=== PATIENT | male | born 1940 | race Caucasian/White ===

== ENCOUNTER → 2024-02-07 08:00 | Outpatient (REF) | payer MEDICARE, OTHER, SELFPAY ==
[2024-02-07 09:07] LABS: ALT (SGPT) 26 U/L (0-50); AST (SGOT) 36 U/L (17-59); Albumin 4.8 g/dl (3.5-5.0); Alkaline Phosphatase 58 U/L (38-126); Blood Urea Nitrogen 13 mg/dl (9-20); Calcium 10.3 mg/dl (8.4-10.2); Carbon Dioxide 28 mmol/L (22-30); Chloride 103 mmol/L (98-107); Glucose 99 mg/dl (70-99); HDL Cholesterol 66 mg/dl; LDL Cholesterol, Calculated 63 mg/dl; Potassium 4.5 mmol/L (3.5-5.1); Sodium 142 mmol/L (135-145); Total Bilirubin 1.6 mg/dl (0.2-1.3); Total Cholesterol 151 mg/dl (50-199); Total Protein 7.4 g/dl (6.3-8.2); Triglyceride 113 mg/dl (10-149); Very Low Density Lipoprotein 22 mg/dl (0-30); eGFR > 60.00
[2024-02-07 09:33] LABS: PSA, Total - Diagnostic 5.47 ng/ml (0.0-4.0)
== END ==
LOC: REG 08:00
PROVIDERS: ATTENDING PHYSICIAN Family Medicine
DX: Z00.00 Encounter for general adult medical examination without abnormal findings (principal); I10 Essential (primary) hypertension; E78.2 Mixed hyperlipidemia; N40.0 Benign prostatic hyperplasia without lower urinary tract symptoms
CPT/HCPCS: 36415; 80053; 80061; 84153

== ENCOUNTER 2024-03-10 16:59 | Inpatient (IN) | payer MEDICARE, OTHER, SELFPAY ==
[2024-03-10] VITALS (14 sets, daily range): BP systolic 103–171; BP diastolic 59–122; PULSE 82–97
[2024-03-10 09:32] LABS: % Basophils 0.3 % (0-2); % Eosinophils 0.8 % (0-6); % Immature Granulocytes 0.5 % (0-0.5); % Neutrophils 73.4 % (42.2-75.2); Absolute Eosinophils 0.1 10^3/uL (0-0.7); Absolute Immature Granulocytes 0.1 10^3/uL (0-0.05); Absolute Lymphocytes 1.8 10^3/uL (1.2-3.4); Absolute Monocytes 0.7 10^3/uL (0.1-0.6); Absolute Neutrophils 7.5 10^3/uL (1.4-6.5); Hematocrit 47.6 % (39.0-52.0); Hemoglobin 16.4 g/dL (13.0-18.0); Mean Corp Hgb Conc. 34.5 g/dL (33.0-37.0); Mean Corpuscular Hgb 28.4 pg (27.0-31.0); Mean Corpuscular Volume 82.5 fL (80.0-94.0); Mean Platelet Volume 11.2 fL (7.4-10.4); Nucleated Red Blood Cells % 0 % (-); Platelet Count 179 10^3/uL (130-400); Red Blood Cell Count 5.77 10^6/uL (4.70-6.10); Red Cell Dist. Width 13.8 % (11.5-14.5); White Blood Cell Count 10.2 10^3/uL (4.8-10.8)
--- NOTE | 2024-03-10 09:52 | ED.GENMED ---
History of Present Illness
<Dustin Almendarez PA-C - Last Filed: 03/10/24 15:16>
General
Chief Complaint: Fainting/Passed Out
Source: patient
Exam Limitations: none
Time Seen by Provider: 03/10/24 09:21
Travel History
Have you had any contact with someone who has COVID-19?: No
Do you have any symptoms of coronavirus? Fever > 100 degrees, chills, cough, shortness of breath, sore throat, loss of taste or smell, muscle aches, or headache?: No
History of Present Illness
History of Present Illness:
83-year-old male on Eliquis for history of stroke x 3 presents with onset of diaphoresis and dizziness after walking his dog for about 10 to 15 minutes. He then developed nausea and was vomiting several times. He leaned over a chair to keep his
balance however the chair tipped over and he fell to the ground. He did not hit his head. The saw this happened. He denies headache. He took him quite some time with many people to have him sit up due to generalized weakness. He states at
the moment he feels improved. He denies a headache but still notes weakness and dizziness with nausea. There was never any chest pain. No vision change. No other complaints at this time
Past History
<Dustin Almendarez PA-C - Last Filed: 03/10/24 15:16>
Past History
ED Past Medical History: Cancer (Skin), CVA (June 2021 acute ischemic left temporoparietal stroke), HTN, Hypercholesterolemia and Other (dizziness, aphasia, orthostatic hypotension, Gout)
ED Past Surgical History: Cardiac (Link recorder implanted) and Tonsilectomy
Social History
Tobacco: Former smoker
Alcohol: None
Drug: None
Personal:
Living: with family
Employment: Retired
Family History
Family History: Other (reviewed and non-contributory)
Phy Exam
<Dustin Almendarez PA-C - Last Filed: 03/10/24 15:16>
Physical Exam
Physical Exam:
General: Overall well-appearing male no acute respiratory distress
HEENT: Normocephalic atraumatic
Heart: Regular rate and rhythm no murmurs
Lungs: Clear to auscultation bilaterally no wheezing
Abdomen: Soft nontender nondistended no guarding or rebound
Neurologic exam: Alert and oriented x 3 no nystagmus no drift finger-nose intact negative [place]-Hallpike
Extremities: No cyanosis or edema
Skin: Warm, no rashes
Course
<Dustin Almendarez PA-C - Last Filed: 03/10/24 15:16>
Orders/Labs/Results
Orders:
Orders
03/10/24 09:07
Electrocardiogram (*1) Urgent
Reason for Study: Chest Pain
Cardiac Monitoring- Treatment ONCE
EKG- Treatment ONCE
IV Insert/Care/Rem.- Treatment PRN
03/10/24 09:25
Complete Blood Count/With Diff Urgent
03/10/24 09:35
0.9% Sodium Chloride 1000 ml [Nss] 1,000 ml IV BOLUS
Ondansetron Injectable [Zofran] 4 mg IV NOW STA
03/10/24 10:00
Comprehensive Metabolic Panel Urgent
03/10/24 10:01
Troponin I Urgent
Urinalysis Reflex To Culture Urgent
Date Specimen was Collected: 03/10/24
Time Specimen was Collected: 09:53
Urine Microscopic Reflex Cult Urgent
03/10/24 12:12
Troponin I Urgent
03/10/24 13:57
Troponin I Urgent
03/10/24 15:04
Costa Placement- Treatment ONCE
Reason for insertion: Acute Retention
Abnormal Lab Results
06/03/10/24 03/10/24
09:25 10:00 10:01
MPV 11.2 H fL
(7.4-10.4)
Abs Immat Gran (auto) 0.1 H 10^3/uL
(0-0.05)
Absolute Neuts (auto) 7.5 H 10^3/uL
(1.4-6.5)
Absolute Monos (auto) 0.7 H 10^3/uL
(0.1-0.6)
Lymphocytes % 18.0 L %
(20.5-51.1)
Glucose 169 H mg/dl
(70-99)
Total Bilirubin 1.7 H mg/dl
(0.2-1.3)
Troponin I 0.036 H* ng/ml
Albumin 5.1 H g/dl
(3.5-5.0)
Urine Ketones 1+ A
(Negative)
Ur Occult Blood Reflex 1+ A
(Negative)
Leukocyte Esterase Rfl Trace A
(Negative)
Urine RBC 3-6 A /HPF
(0-2)
Urine Glucose Trace A
(Negative)
03/10/24 03/10/24
12:12 13:57
MPV
Abs Immat Gran (auto)
Absolute Neuts (auto)
Absolute Monos (auto)
Lymphocytes %
Glucose
Total Bilirubin
Troponin I 0.065 H* D ng/ml 0.118 H* D ng/ml
Albumin
Urine Ketones
Ur Occult Blood Reflex
Leukocyte Esterase Rfl
Urine RBC
Urine Glucose
03/10/24 09:25
03/10/24 10:00
Vital Signs
Initial and Last Documented VS:
Initial Vital Signs
Temp Pulse Resp BP Pulse Ox
97.5 F 77 18 121/71 93
03/10/24 09:05 03/10/24 09:05 03/10/24 09:05 03/10/24 09:05 03/10/24 09:05
Last Documented Vital Signs
Temp Pulse Resp BP Pulse Ox
98.4 F 82 18 147/86 93
03/10/24 15:20 03/10/24 15:45 03/10/24 15:45 03/10/24 15:22 03/10/24 15:45
<Ernesto Rajan DO - Last Filed: 03/10/24 16:08>
Orders/Labs/Results
Orders:
Orders
03/10/24 09:07
Electrocardiogram (*1) Urgent
Reason for Study: Chest Pain
Cardiac Monitoring- Treatment ONCE
EKG- Treatment ONCE
IV Insert/Care/Rem.- Treatment PRN
03/10/24 09:25
Complete Blood Count/With Diff Urgent
03/10/24 09:35
0.9% Sodium Chloride 1000 ml [Nss] 1,000 ml IV BOLUS
Ondansetron Injectable [Zofran] 4 mg IV NOW STA
03/10/24 10:00
Comprehensive Metabolic Panel Urgent
03/10/24 10:01
Troponin I Urgent
Urinalysis Reflex To Culture Urgent
Date Specimen was Collected: 03/10/24
Time Specimen was Collected: 09:53
Urine Microscopic Reflex Cult Urgent
03/10/24 12:12
Troponin I Urgent
03/10/24 13:57
Troponin I Urgent
03/10/24 15:04
Costa Placement- Treatment ONCE
Reason for insertion: Acute Retention
Abnormal Lab Results
06/17/24 06/17/24 06/17/24
09:25 10:00 10:01
MPV 11.2 H fL
(7.4-10.4)
Abs Immat Gran (auto) 0.1 H 10^3/uL
(0-0.05)
Absolute Neuts (auto) 7.5 H 10^3/uL
(1.4-6.5)
Absolute Monos (auto) 0.7 H 10^3/uL
(0.1-0.6)
Lymphocytes % 18.0 L %
(20.5-51.1)
Glucose 169 H mg/dl
(70-99)
Total Bilirubin 1.7 H mg/dl
(0.2-1.3)
Troponin I 0.036 H* ng/ml
Albumin 5.1 H g/dl
(3.5-5.0)
Urine Ketones 1+ A
(Negative)
Ur Occult Blood Reflex 1+ A
(Negative)
Leukocyte Esterase Rfl Trace A
(Negative)
Urine RBC 3-6 A /HPF
(0-2)
Urine Glucose Trace A
(Negative)
03/10/24 03/10/24
12:12 13:57
MPV
Abs Immat Gran (auto)
Absolute Neuts (auto)
Absolute Monos (auto)
Lymphocytes %
Glucose
Total Bilirubin
Troponin I 0.065 H* D ng/ml 0.118 H* D ng/ml
Albumin
Urine Ketones
Ur Occult Blood Reflex
Leukocyte Esterase Rfl
Urine RBC
Urine Glucose
03/10/24 09:25
03/10/24 10:00
Vital Signs
Initial and Last Documented VS:
Initial Vital Signs
Temp Pulse Resp BP Pulse Ox
97.5 F 77 18 121/71 93
03/10/24 09:05 03/10/24 09:05 03/10/24 09:05 03/10/24 09:05 03/10/24 09:05
Last Documented Vital Signs
Temp Pulse Resp BP Pulse Ox
98.4 F 82 18 147/86 93
03/10/24 15:20 03/10/24 15:45 03/10/24 15:45 03/10/24 15:22 03/10/24 15:45
<Dustin Almendarez PA-C - Last Filed: 03/10/24 15:16>
MDM/Problems Addressed
Differential Diagnosis Includes:
Generalized weakness with dizziness and vomiting. No unilateral or focal deficit. Do not suspect CVA. Discussed with family potential for imaging including CT of the head secondary to his anticoagulated state and fall however the patient and
family declined at this time. They do believe he is dehydrated or volume depleted. I this is most likely correct. Will check for electrolyte abnormality. Keep on heart monitor. Fluids and Zofran ordered.
<Dustin Almendarez PA-C - Last Filed: 03/10/24 15:16>
*Critical Care Note
Total Time (30-74mins, 75-104mins- exclusive of procedures): Not Applicable
<Dustin Almendarez PA-C - Last Filed: 03/10/24 15:16>
Update Note
Update Note:
Patient reevaluated multiple times still chest pain-free. Initial troponin 0.038. Repeat troponin 0.065. Third troponin was 0.118. Discussed with cardiology. Will keep in hospital for further evaluation. Patient also complaining of lower
abdominal pain has been urinating frequently. Nurse did bedside bladder scan which showed greater than 750 mL in the bladder. Will place Costa catheter for acute urinary retention
ED Attending Note
<Dustin Almendarez PA-C - Last Filed: 03/10/24 15:16>
-
Portions of this chart may have been created with voice recognition software.� Occasional wrong word or��sound alike� substitutions may have occurred due to the inherent limitations of voice recognition software.
<Ernesto Rajan DO - Last Filed: 03/10/24 16:08>
ED Attending Note
Patient seen and examined by attending physician: Yes
I performed the substantive portion of visit, reviewed & personally made and approve the management plan that is documented in note by myself or SANIYA.: Yes
ED Attending Note:
Patient is a 83-year-old male with a known history of stroke and today while walking his dog after approximately 15 minutes began to feel very dizzy and lightheaded. Patient's son and state he became very very diaphoretic and pale. Patient
denies any chest pain or palpitations. Patient was nauseous and did vomit. Patient fell onto his side of a lounge chair and was unable to get up. Patient states he is feeling fine now. Patient denies any speech difficulties although his and
son said that his speech seemed to be nonsensical at 1 time. Patient has no recent illnesses or injuries. On physical exam the patient appears in good health. EKG does not show any acute changes. Does show normal sinus rhythm with right bundle
branch block and left axis deviation. Patient's initial troponin was not elevated but subsequent ones were. Given this and the symptoms of the patient patient will be admitted.
Discharge Plan
Departure
Patient Disposition: Admit
Date of Disposition: 03/10/24
Time of Disposition: 15:15
Admit to: Telemetry
Presentation/result/management discussed w/ accepting MD/DO: Hospitalist
Discharge Problem:
Near syncope, Acute urinary retention
Prescriptions:
No Action
finasteride 5 MG tablet
5 mg PO MOWEFR
metoprolol succinate 25 mg tablet extended release 24 hr
25 mg PO DAILY Qty: 30 0RF
rosuvastatin 40 mg Tablet
40 mg PO MOWEFR
Eliquis 5 mg Tablet
5 mg PO BID
Referrals:
Mark Moyer DO [Family Provider] -
Interventions
Interventions:
*Risk Screen - Suicide Last Done: 03/10/24 09:06
*General Assessment Last Done: 03/10/24 13:10
*Neglect/Abuse Screening Last Done: 03/10/24 09:06
ED- Fall Risk Assessment Last Done: 03/10/24 13:10
*ED COVID-19 Vaccine History Last Done: 03/10/24 13:10
ED- Cardiac Assessment Last Done: 03/10/24 11:21
ED- Neurological Assessment Last Done: 03/10/24 11:22
Discharge Date and Time
Print Language: ANGOLAN
[2024-03-10] MEDS: NSS 1000 IV (10:02)
[2024-03-10] MEDS: ZOFRAN 4 MG IV (10:02)
[2024-03-10 10:30] LABS: Urine Albumin Trace (Neg - Trace); Urine Bilirubin Negative (Negative); Urine Character Clear (Clear); Urine Color Yellow; Urine Glucose Trace (Negative); Urine Ketone 1+ (Negative); Urine Leukocyte Trace (Negative); Urine Nitrite Negative (Negative); Urine Occult Blood 1+ (Negative); Urine Specific Gravity 1.015 (<1.030); Urine Urobilinogen Negative (Neg - 1+)
[2024-03-10 10:34] LABS: ALT (SGPT) 26 U/L (0-50); AST (SGOT) 37 U/L (17-59); Albumin 5.1 g/dl (3.5-5.0); Alkaline Phosphatase 65 U/L (38-126); Blood Urea Nitrogen 13 mg/dl (9-20); Carbon Dioxide 26 mmol/L (22-30); Chloride 102 mmol/L (98-107); Glucose 169 mg/dl (70-99); Potassium 4.3 mmol/L (3.5-5.1); Sodium 142 mmol/L (135-145); Total Bilirubin 1.7 mg/dl (0.2-1.3); Total Protein 7.9 g/dl (6.3-8.2); eGFR > 60.00
[2024-03-10 10:49] LABS: Troponin I 0.036 ng/ml
[2024-03-10 10:53] LABS: Urine Mucus Moderate
[2024-03-10 10:54] LABS: Urine White Cell 0-2 /HPF (0-5)
[2024-03-10 12:47] LABS: Troponin I 0.065 ng/ml
[2024-03-10 14:49] LABS: Troponin I 0.118 ng/ml
--- NOTE | 2024-03-10 15:31 | CON.CAR ---
Addendum entered and electronically signed by Fausto Martin MD 03/10/24 17:00:
I saw and examined the patient.
The [employer]'s note was reviewed and I agree with the note.
83-year-old male with a history of bifascicular block, paroxysmal atrial fibrillation, CVA carotid artery disease, implantable loop recorder and hypertension who had dizziness with a sensation of room spinning. No presyncopal symptoms. Evaluated
in the ER and symptoms improved after IV fluids and Zofran. Patient was hypertensive and in addition was noted to have urinary retention with significant discomfort requiring Costa catheter. Patient's implantable loop recorder has been
interrogated no evidence of arrhythmias. Particular no evidence of symptomatic A-fib with RVR , severe bradycardia or high degree AV block. No evidence that dizziness is cardiac in origin. May be vertigo versus other neurologic cause. Patient
also noted to have mild elevation in troponin. Suspect non-FL troponin related to combination of factors including severe hypertension, urinary retention with severe abdominal discomfort. Patient now comfortable feeling back at baseline.
-Monitor on telemetry
-Additional assessment of dizziness being directed by primary team.
-Repeat echo
-Follow serial troponins.
-Eventual plans to repeat Lexiscan nuclear perfusion stress test.. If patient remains stable this can be done as an outpatient.
-Continue monitoring of hypertension. Currently improved after urinary retention was treated
Original Note:
Consultation
Consultation Request
Date/Time Consultation Requested: 03/10/24 1517
Date/Time Consultation Performed: 03/10/24 1525
Requesting Provider: Dustin Almendarez
Performing Provider: Brenna ROCK for Dr. Martin
Reason for Consultation: abnormal troponin
Medical History
-
Chief Complaint: dizziness
History of Present Illness:
83 y/o male with hypertension, dyslipidemia, PVC's, CVA, PAF, bifascicular block, carotid stenosis, and history of loop implant who is here for evaluation of dizziness. Briefly, he was walking his dog around 6 AM. After about 4 blocks, he began to
feel light-headed. He shortened his walk and headed home. He went to sit on a lounger and felt spinning and became nauseated. He leaned to the edge of the chair and fell and could not get up due to the spinning. EMS was alerted. He did not pass out.
He feels better s/p IVF and Zofran. Of note, he felt today like he couldn't urinate and is now s/p Costa. BP was quite elevated, but has now improved. He tells me it is normal at home.
Past Medical History
Past Medical History: Arrhythmias, CVA, HTN and Hypercholesterolemia
Social History
Tobacco: Former Smoker
Personal:
Living: With Family
Family History
Family History: Reviewed & Not Pertinent
Allergies / Home Medications
Allergy/AdvReac Type Severity Reaction Status Date / Time
No Known Allergies Allergy Verified 03/10/24 15:21
�Medication �Instructions �Recorded �Confirmed �Type
finasteride 5 mg tablet 5 mg PO MOWEFR Urinary issue 09/22/20 03/10/24 History
metoprolol succinate 25 mg 25 mg PO DAILY #30 tabs 06/25/23 03/10/24 Rx
tablet,extended release 24 hr
apixaban 5 mg tablet (Eliquis) 5 mg PO BID 03/10/24 03/10/24 History
rosuvastatin 40 mg tablet 40 mg PO MOWEFR 03/10/24 03/10/24 History
Review of Systems
-
History Source: Patient
All other systems: Negative unless noted
Neurological: Dizzy
Physical Exam
Vital Signs
Temp Pulse Resp BP Pulse Ox
98.4 F 72 22 171/94 97
03/10/24 15:20 03/10/24 15:20 03/10/24 15:20 03/10/24 14:00 03/10/24 14:15
Lab Results
03/10/24 09:25
03/10/24 10:00
Troponin I 0.118 ng/ml H* D 03/10/24 13:57
Physical Exam
General: Well Developed, Well Nourished and No Apparent Distress
HEENT: Normocephalic and Anicteric
Respiratory: Clear and Non Labored Respirations
Cardiac: Regular Rhythm
Breast: Deferred by me
Skin: Warm and Dry
Neuro: AO x 3
Psych: Calm
Impression / Plan
-
Dizziness:
-loop recorder interrogated and shows no arrhythmia
-could he be having vertigo, versus vagal episode with his urinary retention issues?
-checking echo
-feels improved s/p fluids and zofran
Abnormal troponin:
-suspect acute non-ischemic myocardial injury in setting of HTN, urinary retention issues
-trop 0.118
-denies CP or SOB
-trend to peak
-check echo
PAF:
-stable in SR
-continue Eliquis for OAC
Bifascicular block:
-chronic, stable
Urinary retention:
-s/p Costa
-per primary
HTN:
-elevated in ED, checks at home and reports it is fine
-improved
-continue metoprolol and monitor
Data Reviewed
-
EKG: Tracing Personally Visualized and interpreted (SR with Bifasicular block)
Medical Tests (Nuc Med, Echo etc): Report Reviewed by me (Echo 06/25/23: EF 55-60%, Mild concentric left ventricular hypertrophy, Stage II diastolic dysfunction, Sclerotic trileaflet aortic valve with mild aortic regurgitation and no significant
stenosis. Mild to moderately elevated PASP. )
Labs: Labs Reviewed by me
--- NOTE | 2024-03-10 16:47 | W.PN.UPDATE ---
Update Note
Progress Note Update
Patient seen and examined
Discussed with resident
Discussed with cardiology
Impression
83 years old male with prior history of CVA, paroxysmal atrial fibrillation presented with episode of presyncope and dizziness without loss of consciousness
Non-OR troponin elevation
Acute retention requiring Costa catheter placement mild emergency room
Conditions prior to admission:
Prior history of CVA with no residual neurologic deficit
Essential hypertension
Paroxysmal atrial fibrillation documented on outpatient monitoring.
Bifascicular block: RBBB/LAFB
BPH with prior history of retention.
History of gastrointestinal hemorrhage, lower
Plan:
Episode of dizziness, possibly presyncope, although patient adamant with no loss of consciousness
Neurologic exam with no focal findings
Patient declined CT scan of the head while in ED.
Suspect vasovagal episode also in the settings of urine retention
Check orthostatic vitals
Agree to update echocardiogram
Will update carotid ultrasound.
Monitor oral intake and observe off IV fluids
Non-OR troponin elevation
Patient denies any chest pain
EKG normal sinus rhythm with no ischemic changes
Continue to trend.
Echo pending as per cardiology
Continue beta-blockade
Paroxysmal atrial fibrillation
Presented in sinus rhythm
Continue metoprolol and Eliquis
Essential hypertension
Continue metoprolol
Monitor blood pressure trend
Orthostatic vitals
Acute urinary retention
History of BPH
Patient reported to be on Proscar every other day prior to admission
Add Flomax
Continue Costa for acute retention
Will start voiding trial on 03/11
--- NOTE | 2024-03-10 16:56 | HPS.HSE ---
Family Physician
-
Family Physician: Mark Moyer
Chief Complaint
-
Near syncope, nausea and vomiting
History of Present Illness
Austin Bingham, age 83, came to the emergency 03-10-24 with an episode of near syncope, nausea and vomiting. He was walking his dog outside when he started experiencing dizziness and diaphoresis. He developed nausea and vomiting subsequently. He tried
to lean against his chair but lost his balance and fell to the ground. Did not hit his head or lose consciousness. He experienced weakness for about 30-40 minutes, and felt better after he received IV hydration and ondansetron. Notably, he has not
been able to urinate today. He got a Costa put in in the ED, and has felt much better since then. Of note, he has had a similar experience of near syncope 3 weeks ago, and felt fine within a few hours.
Medical History
Past Medical History
Past Medical History: Reports Other (hypertension, hyperlipidemia, history of stroke, carotid stenosis, paroxysmal atrial fibrillation, carotid artery disease, benign prostatic hyperplasia)
Past Surgical History: Reports Other (tonsilectomy; LINQ recorder implantation)
Social History
Tobacco: Former Smoker
Alcohol: Occasional
Drug: None
Personal:
Living: With Family
Employment: Retired
Family History
Family History: Not pertinent
Allergies / Home Medications
Allergies reflects when Allergies were last updated in [employer].
Home Medications with original date entered in [employer]
Allergy/Medication List:
Allergies
Allergy/AdvReac Type Severity Reaction Status Date / Time
No Known Allergies Allergy Verified 03/10/24 15:21
Home Medications
finasteride 5 mg tablet 5 mg PO MOWEFR Urinary issue 09/22/20
metoprolol succinate 25 mg tablet,extended release 24 hr 25 mg PO DAILY #30 tabs 06/25/23
apixaban 5 mg tablet (Eliquis) 5 mg PO BID 03/10/24
rosuvastatin 40 mg tablet 40 mg PO MOWEFR 03/10/24
Review of Systems
-
History Source: Patient
Constitutional: Reports No Symptoms
EENT: Reports No Symptoms
Respiratory: Reports No Symptoms
Cardiac: Reports No Symptoms
Abdomen/GI: Reports No Symptoms
: Reports Difficulty Voiding
Musculoskeletal: Reports No Symptoms
Skin: Reports No Symptoms
Neurological: Reports No Symptoms
Endocrine: Reports No Symptoms
Hematologic/Lymphatic: Reports No Symptoms
Psych: Reports No Symptoms
Physical Exam
Vital Signs
Vital Signs
Temp Pulse Resp BP Pulse Ox
98.4 F 82 18 147/86 93
03/10/24 15:20 03/10/24 15:45 03/10/24 15:45 03/10/24 15:22 03/10/24 15:45
Physical Exam
General: No Apparent Distress and Comfortable
HEENT: NormoCephalic, Anicteric, Moist mucous membranes and Atraumatic
Respiratory: Clear and Non Labored Respirations
Cardiac: S1/S2 and Regular Rhythm
GI: Soft, Non Tender and Non Distended
Genito-urinary: No costovertebral tender
Musculoskeletal: No Clubbing, No Cyanosis and No Edema
Skin: Warm, Dry and IV/Catheter Site
Neuro: Awake, Alert, Oriented and Nonfocal/grossly intact
Psych: Calm and Intact Judgment/Insight
Laboratory Results
-
03/10/24 09:25
03/10/24 10:00
Laboratory Results
Total Bilirubin 1.7 mg/dl (0.2-1.3) H 03/10/24 10:00
AST 37 U/L (17-59) 03/10/24 10:00
ALT 26 U/L (0-50) 03/10/24 10:00
Alkaline Phosphatase 65 U/L (38-126) 03/10/24 10:00
Troponin I 0.118 ng/ml H* D 03/10/24 13:57
Impression/Plan
-
Impression
- Near syncope
- Elevated troponin
- Acute urinary retention
- Benign prostatic hyperplasia
- Paroxysmal atrial fibrillation
- Hypertension
- Hyperlipidemia
- History of stroke
- Carotid artery disease
Plan
Near syncope
- Likely vasovagal in setting of acute urinary retention.
- Declined CT head in the ED.
- Cannot rule out vertigo vs other causes.
- Will check orthostatic vitals.
- Will check echocardiogram.
Elevated troponin
- No chest pain/pressure, palpitations or other symptoms.
- Repeat ECGs with normal sinus rhythm with no ischemic changes.
- Echocardiogram per above.
- Trend to peak.
Acute urinary retention
- Costa placed in the ED; will take it out tomorrow in the morning.
- Switch finasteride to daily instead of M-W-F.
- Add tamsulosin.
Benign prostatic hyperplasia
- Per above.
- Recommended further outpatient urology evaluation.
Paroxysmal atrial fibrillation
- On apixaban.
- Has LINQ recorder implanted.
- Heart rate and ECG unremarkable so far.
Hypertension
- Mostly stable.
- Continue metoprolol.
Hyperlipidemia
- Continue rosuvastatin.
Carotid artery disease
- Carotid ultrasound to re-evaluate.
History of stroke
- Acute ischemic left temporoparietal stroke in June 2021.
Diet
- Regular
DVT prophylaxis
- On apixaban
Code status
- Full
[2024-03-10] MEDS: FLOMAX 0.400000000000000022 MG PO (17:14)
[2024-03-10 18:14] LABS: Troponin I 0.515 ng/ml
[2024-03-10] MEDS: CRESTOR 40 MG PO (19:02)
--- NOTE | 2024-03-10 23:06 | PTCARENOTE ---
Noted hematuria in pulido bag during change of shift rounds. PRANAV Joe notified. Ligia held tonight. Plan of care ongoing.
[2024-03-11 01:41] LABS: Troponin I 0.983 ng/ml
[2024-03-11 03:00] VITALS: BP 127/75
--- NOTE | 2024-03-11 03:04 | PTCARENOTE ---
Troponin resulted at 0.983. PRANAV Joe notified. Plan of care ongoing.
[2024-03-11 07:36] VITALS: BP 131/79
--- NOTE | 2024-03-11 08:42 | PTOTSP ---
Received order for PT and reviewed chart. Noted pt with rising troponin level. Will hold PT at this time and await downtrend.
[2024-03-11] MEDS: PROSCAR 5 MG PO (09:09)
[2024-03-11] MEDS: TOPROL XL 25 MG PO (09:09)
--- NOTE | 2024-03-11 09:15 | W.PN.HOSP.TC ---
Addendum entered and electronically signed by Parminder Luz MD 03/11/24 16:30:
Patient seen and examined
Discussed with resident
Discussed with patient's son at the bedside
Discussed with neurology and vascular surgery
Impression/plan:
83 years old male presented with recurrent episodes of presyncope/near syncope.
Hemodynamically stable with no focal neurologic signs on presentation.
Non-NC troponin elevation on presentation with flat troponin while no complaints of chest pain and with no evidence of ischemia on EKG
Echocardiogram with preserved biventricular function and no significant valvular abnormalities.
Patient with prior history of a left-sided CVA and paroxysmal atrial fibrillation currently on anticoagulation with Eliquis.
Additional workup with carotid ultrasound revealed up to 69% of left carotid artery stenosis. Discussed with neurology and vascular surgery. At this point there is no clear evidence of symptomatic stenosis. Recommended to continue current
antihypertensive therapy along with full anticoagulation follow-up with neurology and vascular surgery as outpatient
Acute urine retention in patient with BPH requiring Costa catheter placement while in the emergency room
Retrospectively possibly vasovagal episode in the settings of retention.
No evidence for infection.
Costa catheter removed with successful voiding trial day of discharge
Recommended to increase dose of Proscar to daily and follow-up with urology as outpatient
Original Note:
Today's Communication/Plan
-
* Consult neurology.
* Voiding trial.
* Anticipated discharge soon.
Assessment / Plan
Assessment / Plan
Assessment
Austin Bingham, age 83, came to the emergency 03-10-24 with an episode of near syncope, nausea and vomiting. He was walking his dog outside when he started experiencing dizziness and diaphoresis. He developed nausea and vomiting subsequently. He tried
to lean against his chair but lost his balance and fell to the ground. Did not hit his head or lose consciousness. He experienced weakness for about 30-40 minutes, and felt better after he received IV hydration and ondansetron. Notably, he has not
been able to urinate today. He got a Costa put in in the ED, and has felt much better since then. Of note, he has had a similar experience of near syncope 3 weeks ago, and felt fine within a few hours.
Impression
- Near syncope
- Left carotid stenosis
- Right subclavian steal syndrome
- Elevated troponin
- Acute urinary retention
- Benign prostatic hyperplasia
- Paroxysmal atrial fibrillation
- Hypertension
- Hyperlipidemia
- History of stroke
- Carotid artery disease
Plan
Near syncope
- Likely vasovagal in setting of acute urinary retention.
- Declined CT head in the ED.
- Cannot rule out vertigo vs other causes.
- Will check orthostatic vitals.
- Echocardiogram was unremarkable.
- US carotid shows 50-69% stenosis within the left carotid bulb.
Left carotid stenosis
- 50-69% stenosis within the left carotid bulb.
- Considering his history of CVA and recent syncopal episodes, will consult neurology.
Right subclavian steal syndrome
- Seen on carotid ultrasound.
- May have caused/contributed to the syncopal episodes.
Elevated troponin
- No chest pain/pressure, palpitations or other symptoms.
- Repeat ECGs with normal sinus rhythm with no ischemic changes.
- Echocardiogram per above.
- Peaked last night; down-trended since.
Acute urinary retention
- Costa placed in the ED; taken out in the morning and was able to urinate.
- Switch finasteride to daily instead of M-W-F.
- Add tamsulosin.
Benign prostatic hyperplasia
- Per above.
- Recommended further outpatient urology evaluation.
Paroxysmal atrial fibrillation
- On apixaban.
- Has LINQ recorder implanted.
- Heart rate and ECG unremarkable so far.
Hypertension
- Mostly stable.
- Continue metoprolol.
Hyperlipidemia
- Continue rosuvastatin.
Carotid artery disease
- Carotid ultrasound to re-evaluate.
History of stroke
- Acute ischemic left temporoparietal stroke in June 2021.
Diet
- Regular.
DVT prophylaxis
- On apixaban.
Code status
- Full.
Anticipated Discharge: Within 24 hours
Subjective/Interval History
-
Date of Service: March 11, 2024
Objective Data
-
Labs:
Laboratory Results
03/11/24
06:00
WBC Pending
Hgb Pending
Hct Pending
Plt Count Pending
Sodium Pending
Potassium Pending
Chloride Pending
Carbon Dioxide Pending
BUN Pending
Creatinine Pending
Glucose Pending
Calcium Pending
Vital Signs:
Vital Signs
Temp Pulse Resp BP Pulse Ox
98.3 F 73 16 131/79 95
03/11/24 07:36 03/11/24 07:36 03/11/24 07:36 03/11/24 07:36 03/11/24 07:36
I&O
03/10/24 03/11/24 03/12/24
06:59 06:59 06:59
Intake Total 240 / 240
Output Total 1000 / 1000
Balance -760 / -760
Review of Systems
-
History Source: Patient
Constitutional: Reports No Symptoms
EENT: Reports No Symptoms Reported
Respiratory: Reports No Symptoms
Cardiac: Reports No Symptoms
Abdomen/GI: Reports No Symptoms
Breast: Reports No Symptoms
Genitourinary: Reports No Symptoms
Musculoskeletal: Reports No Symptoms
Skin: Reports No Symptoms
Neuro: Reports No Symptoms
Endocrine: Reports No Symptoms
Hematologic / Lymphatic: Reports No Symptoms
Allergy / Immunology: Reports No Symptoms
Physical Exam
-
General: No Apparent Distress and Comfortable
HEENT: Normocephalic, Atraumatic, Moist Mucous Membranes and Anicteric
Respiratory: Clear to Auscultation and Non Labored Respirations
Cardiac: Regular Rhythm and S1/S2
GI: Soft, Nontender, Nondistended and No Hepatosplenomegaly
Genito-urinary: No Costovertebral Tender
Musculoskeletal: No Clubbing, No Cyanosis and No Edema
Skin: Warm, Dry and IV Access / Catheter Site
Neuro: Awake, Alert, Oriented and Nonfocal/Grossly Intact
Psych: Calm
[2024-03-11 09:45] LABS: % Basophils 0.3 % (0-2); % Eosinophils 0.5 % (0-6); % Immature Granulocytes 0.3 % (0-0.5); % Lymphocytes 15.6 % (20.5-51.1); % Monocytes 9.3 % (1.7-9.3); Absolute Eosinophils 0.1 10^3/uL (0-0.7); Absolute Lymphocytes 1.9 10^3/uL (1.2-3.4); Absolute Monocytes 1.1 10^3/uL (0.1-0.6); Absolute Neutrophils 8.8 10^3/uL (1.4-6.5); Hematocrit 44.4 % (39.0-52.0); Hemoglobin 15.1 g/dL (13.0-18.0); Mean Corpuscular Hgb 28.8 pg (27.0-31.0); Mean Corpuscular Volume 84.6 fL (80.0-94.0); Mean Platelet Volume 10.7 fL (7.4-10.4); Nucleated Red Blood Cells % 0 % (-); Platelet Count 197 10^3/uL (130-400); Red Blood Cell Count 5.25 10^6/uL (4.70-6.10); White Blood Cell Count 11.9 10^3/uL (4.8-10.8)
--- NOTE | 2024-03-11 09:47 | W.PN.CD ---
Today's Communication / Plan
-
ok to discharge from a cardiac perspective
patient should follow up with Dr Martin, and in device clinic as planned
Impression / Plan
-
Dizziness:
-loop recorder interrogated and shows no arrhythmia
-could he be having vertigo, versus vagal episode with his urinary retention issues?
-echo without change from prior normal lvef
-feels improved s/p fluids and zofran
Nonischemic myocardial injury in the setting of HTN, urinary retention:
-no ecg changes
-denies CP or SOB
-echo 03/11/24 with normal LVEF and improved pasp
PAF:
-stable in SR
-continue Eliquis for OAC
Bifascicular block:
-chronic, stable
Urinary retention:
-s/p Costa
-per primary
HTN:
-elevated in ED, checks at home and reports it is fine
-improved
-continue metoprolol and monitor
Subjective:
He feesl good no complaints except being here.
Data:
TTE 03/11/24:
Normal biventricular size and systolic function without regional wall motion
abnormality.
Mild concentric left ventricular hypertrophy.
Stage I diastolic dysfunction suggestive of abnormal relaxation.
Aortic sclerosis without stenosis.
Compared to the prior on 06/25/2023, pulmonary pressure has decreased from 50 to
55 mmHg to 35 mmHg
Physical Exam
Vital Signs/Labs
Vital Signs
Temp Pulse Resp BP Pulse Ox
98.3 F 73 16 131/79 95
03/11/24 07:36 03/11/24 07:36 03/11/24 07:36 03/11/24 07:36 03/11/24 07:36
03/10/24 03/11/24 03/12/24
06:59 06:59 06:59
Actual Weight 84.141 kg
LAB Results
03/10/24 03/10/24 03/10/24
09:25 10:01 12:12
Troponin I Cancelled 0.036 H* 0.065 H* D
03/10/24 03/10/24 03/11/24
13:57 17:31 00:46
Troponin I 0.118 H* D 0.515 H* D 0.983 H* D
Physical Exam
Constitutional: No acute distress
Cardiovascular: Rhythm & rate is regular, Pedal edema is absent, JVD pressure is normal, Systolic murmur absent and Diastolic murmur absent
Respiratory: Respiratory effort normal, Lungs clear to auscul., Wheeze Absent, Crackles Absent and Rhonchi Absent
Neuro/Psych: AO x 3
Data Reviewed
-
Date of Service: March 11, 2024
EKG: Other (tele sinus)
Echo: Tracing Personally Visualized and interpreted (see above)
[2024-03-11] MEDS: ELIQUIS 5 MG PO (10:05)
[2024-03-11 10:09] LABS: Blood Urea Nitrogen 20 mg/dl (9-20); Calcium 10.4 mg/dl (8.4-10.2); Carbon Dioxide 27 mmol/L (22-30); Chloride 104 mmol/L (98-107); Estimated Creatinine Clearance 58 ml/min; Glucose 108 mg/dl (70-99); Potassium 4.3 mmol/L (3.5-5.1); Sodium 139 mmol/L (135-145); eGFR > 60.00
[2024-03-11 10:17] LABS: Troponin I 0.825 ng/ml
[2024-03-11 11:20] VITALS: BP 103/61; BP 111/77; BP 93/63; PULSE 63; PULSE 64; PULSE 67; PULSE 72; O2SAT 97
--- NOTE | 2024-03-11 11:27 | PTOTSP ---
Pt reports he is feeling back to baseline, no longer dizzy. Not orthostatic. He is able to get OOB and ambulate in hallway without need for any assistive devices. No PT needs were identified. PT will sign off at this time.
[2024-03-11 11:43] VITALS: BP 103/61; BP 93/63; PULSE 63; PULSE 67
--- NOTE | 2024-03-11 12:15 | CM ---
Reviewed chart, met with patient to obtain information for assessment. Patient stated that he lives with his who was at bedside, in an in law suite with elevator access. Patient described himself as independent with all ADLs, personal care,
bathing and dressing. He can do automatic toe laster, cook, clean and do laundry. He can drive and can get to his own appointments and do all of his own shopping.
Patient denied any DME.
He has never had VN services. He has not been to a SNF in the past.
Patient stated that he is hoping to be medically cleared for discharge today.
Reviewed IMM with patient. It is on chart.
Plan: Case management will continue to follow and assist with discharge planning. Patient would like to go home.
--- NOTE | 2024-03-11 14:28 | CON.NEURO4 ---
Consultation - Neurology 4
-
CONSULTING PHYSICIAN: Casper Stanley
REFERRING PHYSICIAN: Dr Musa
DICTATED BY: Casper Stanley
DATE/TIME OF REQUEST: 03/11/24
DATE/TIME OF CONSULTATION: 03/11/24
Reason for Consultation:Left carotid stenosis, history of stroke, presented with near syncope nausea dry heaviny
History of Present Illness:
The patient is an 83-year-old male with a past med history significant for multiple ischemic strokes, paroxysmal atrial fibrillation, BPH, hypertension hyperlipidemia presented to hospital with near syncope, nausea and vomiting. He was admitted on
03/10.
Patient reports no recent medication changes has not been drinking much water recently and usually his family bothers him to drink more water. He got up in the morning feeling okay and went for a walk with his dog and when he returned home he was
walking down the stairs started to feel unwell with a feeling of dizziness, he then had some nausea and dry heaving vomiting and fell to the ground. EMS was called and was brought to the ER duration of symptoms in total seem to be around 30 to
45-minutes. No loss of consciousness or head injury during this episode and he did not have any vision change diplopia dysarthria or unilateral weakness or paresthesia during the episode. He was treated with antiemetic and IV fluids and did start
to show improvement in the ER.
Currently patient feeling well. Feeling back to baseline with normal ability to walk.
Past Medical History: Multiple previous ischemic strokes including a left temporal parietal infarct, simultaneous bilateral ischemic infarcts, paroxysmal atrial fibrillation, hyperlipidemia, moderate carotid stenosis, BPH
Surgical History: Tonsillectomy, Linq recorder
Family History: Reviewed and noncontributory
Social History: Patient retired and lives with his , no significant alcohol, quit smoking more than 15 years ago, no recreational drugs
Allergies: No known drug allergies
Review of Symptoms:
Patient denies any fever, headache, chest pain, shortness of breath, GI or symptoms.
Physical Exam:
Elderly man pleasant no distress no signs of head or neck trauma eyes are clear oropharynx is clear, heart rate regular breathing unlabored abdomen soft nontender no lower extremity edema
Neurologic Examination:
The patient is awake, alert and oriented x 3. (He/She) is able to follow commands and answer questions appropriately. There is no aphasia or dysarthria. On cranial nerve assessment, pupils are 3 mm bilateral, round and reactive to light and
accommodation. Visual laughlin are full. Extraocular movements are intact. Facial sensations are intact and bilaterally symmetrical, there is no facial asymmetry. Hearing is intact bilaterally to normal conversation volume. Tongue palate and uvula
are midline. Sternocleidomastoid strengths are full bilaterally. Motor strengths are 5/5 bilateral upper and lower extremities on medical research [place] scale. There is no drift or involuntary movement noted. Deep tendon reflexes are 2+ bilateral
upper and lower extremities and Babinski is absent bilaterally. Sensations of pain, touch, temperature and vibration are intact and bilaterally symmetrical. There was no extinction noted on double simultaneous stimulation. Coordination is intact by
finger to nose bilaterally. Gait normal.
Neuro Imaging: CT head reviewed, carotid ultrasound reviewed
1. Extensive calcified plaque within the carotid system bilaterally.
2. Measurements suggestive of 50-69% stenosis within the left carotid bulb as per modified Society of Radiologists in Ultrasound consensus criteria (IAC carotid criteria white paper, 2020).
3. Less than 50% stenosis within the right carotid bulb.
4. Retrograde flow within the right vertebral artery, suggestive of right subclavian steal syndrome.
Impressions
1. Suspicion for a subclavian steal syndrome being present. Possibly dehydration and orthostasis given on finasteride and metoprolol could be making this easier. He had a similar episode in June 2023. Patient has had inconsistent findings
but does have some suggestion of right-sided proximal subclavian artery stenosis, and retrograde flow within the right vertebral artery on the dynamic study of carotid ultrasound. CT angiogram is not a dynamic study and the apparent diminutive flow
in the right vertebral artery on previous CT angiograms may actually represent poor flow reversal in blood flow due to subclavian steal syndrome effects. This can in turn produce episodes of vertigo due to arterial insufficiency to the brainstem
regions.
2. History of multiple ischemic strokes probably most of them due to atrial fibrillation.
3.. Paroxysmal atrial fibrillation on Apixaban
Recommendations:
1. Stressed importance of hydration and would benefit from monitoring blood pressures at home
2. Would have vascular surgery and neurology outpatient follow-up. Not clear to me that we should pursue aggressive intervention of a potential subclavian steal syndrome when his symptoms could be improved and prevented with hydration and blood
pressure medication adjustments.
3. No changes to existing apixaban and statins for secondary stroke prevention
Discussed patient care with: Patient and his , Dr Musa
--- NOTE | 2024-03-11 14:33 | W.DCSUMMARY ---
Documented by User: Jericho Oliver MD, Resident 03/11/24 15:06
Discharge Summary
Discharge Data
Date of Admission: 03/10/24
Date of Discharge: 03/11/24
-
Pending Results: No
Hospital Course
Primary discharge diagnosis
- Near syncope
Secondary discharge diagnoses
- Left carotid stenosis
- Right subclavian steal syndrome
- Elevated troponin
- Acute urinary retention
- Benign prostatic hyperplasia
- Paroxysmal atrial fibrillation
- Hypertension
- Hyperlipidemia
- History of stroke
- Carotid artery disease
Hospital course
Austin Bingham, age 83, came to the emergency 03-10-24 with an episode of near syncope, nausea and vomiting. Notably, he had not been able to urinate all day before his arrival. A Costa was placed in the ED. Blood work was notable for up-trending
troponin, which plateaued by next morning. Multiple ECG readings remained normal, and echocardiogram was unremarkable. Carotid ultrasound was notable for 50-69% stenosis in the left, and right subclavian steal syndrome. He was evaluated by neurology
and no immediate or urgent interventions were recommended. Costa was removed next morning and he had a successful voiding trial.
He remained asymptomatic throughout his hospital stay. Vitals remained normal and blood work otherwise unremarkable. His finesteride will be increased from [id number] dosing to everyday dosing. Advised to follow-up with urology,
neurology and vascular outpatient.
Discharge Plan
-
Patient Disposition: Home (Routine Discharge)
Discharge Diagnosis/Procedures: Near syncope
Condition: Good
Diet: As tolerated
Activity: As tolerated
Driving Restrictions: As prior to admission
Instructions: Carotid artery disease, Urinary retention
Referrals:
Wilbert Stanley MD [Active] - (Left carotid stenosis; recent recurrent near syncopal episodes; history of CVA (2020))
Mark Moyer DO [Family Provider] -
Aaron Costa III, MD [Active] - (Left carotid stenosis; recent recurrent near syncopal episodes)
Prescriptions:
Continued
metoprolol succinate 25 mg tablet extended release 24 hr
25 mg PO DAILY Qty: 30 0RF
rosuvastatin 40 mg Tablet
40 mg PO MOWEFR
Eliquis 5 mg Tablet
5 mg PO BID
Changed
finasteride 5 MG tablet
5 mg PO DAILY Qty: 0 0RF
Discharge Orders:
Discharge Patient (As Directed); Ordered 03/11/24
Ordered By: Jericho Oliver
Discharge Date and Time
Discharge Date/Time: 03/11/24 15:08
Print Language: NIGERIAN

Documented by User: Parminder Luz MD 03/11/24 16:27
Discharge Summary
Discharge Data
Date of Admission: 03/10/24
Date of Discharge: 03/11/24
Discharge Plan
-
Patient Disposition: Home (Routine Discharge)
Discharge Diagnosis/Procedures: Near syncope
Condition: Good
Diet: As tolerated
Activity: As tolerated
Driving Restrictions: As prior to admission
Instructions: Carotid artery disease, Urinary retention
Referrals:
Wilbert Stanley MD [Active] - (Left carotid stenosis; recent recurrent near syncopal episodes; history of CVA (2020))
Mark Moyer DO [Family Provider] -
Aaron Costa III, MD [Active] - (Left carotid stenosis; recent recurrent near syncopal episodes)
Prescriptions:
Continued
metoprolol succinate 25 mg tablet extended release 24 hr
25 mg PO DAILY Qty: 30 0RF
rosuvastatin 40 mg Tablet
40 mg PO MOWEFR
Eliquis 5 mg Tablet
5 mg PO BID
Changed
finasteride 5 MG tablet
5 mg PO DAILY Qty: 0 0RF
Discharge Orders:
Discharge Patient (As Directed); Ordered 03/11/24
Ordered By: Jericho Oliver
Discharge Date and Time
Discharge Date/Time: 03/11/24 15:08
Print Language: NIGERIAN
== END 2024-03-11 15:08 | disposition home or self-care (01) | DRG 726 ==
LOC: 3 WEST ACU 16:59
PROVIDERS: Physician Assistant; Student in an Organized Health Care Education/Training Program; ADMITTING PHYSICIAN Internal Medicine; CONSULT PHYSICIAN Internal Medicine Cardiovascular Disease; CONSULT PHYSICIAN Student in an Organized Health Care Education/Training Program; EMERGENCY PHYSICIAN Emergency Medicine; FAMILY PHYSICIAN Family Medicine
DX: N40.1 Benign prostatic hyperplasia with lower urinary tract symptoms (principal); G45.8 Other transient cerebral ischemic attacks and related syndromes; I45.2 Bifascicular block; I5A Non-ischemic myocardial injury (non-traumatic); R33.8 Other retention of urine; R55 Syncope and collapse; I65.22 Occlusion and stenosis of left carotid artery; I48.0 Paroxysmal atrial fibrillation; E78.00 Pure hypercholesterolemia, unspecified; I10 Essential (primary) hypertension; Z86.73 Personal history of transient ischemic attack (TIA), and cerebral infarction without residual deficits; Z87.891 Personal history of nicotine dependence
CPT/HCPCS: 80048; 80053; 81003; 81015; 84484; 85025; 93005; 93306; 93880; 96361; 96374; 97162; 97166; 99285

== ENCOUNTER 2024-03-14 05:27 | Emergency (ER) | payer MEDICARE, OTHER, SELFPAY ==
[2024-03-14 05:29] VITALS: BP 185/110
[2024-03-14 05:52] VITALS: BMI 29.5
[2024-03-14 06:02] VITALS: BP 138/100
--- NOTE | 2024-03-14 06:12 | ED.GENMED ---
History of Present Illness
General
Chief Complaint: Male Genito-Urinary Symptoms
Source: patient, records and spouse
Exam Limitations: none
Time Seen by Provider: 03/14/24 06:07
Nursing documentation reviewed up to this point in time: agreed with
History of Present Illness
History of Present Illness:
83-year-old male with past of CVA, hypertension, hyperlipidemia, BPH who presents to the emergency room with his for evaluation of urinary retention. Patient was notably admitted to this hospital 03/10/2024 until 03/11/2024 for acute urinary
retention and syncope�she had a catheter for 24 hours that was ultimately removed and he passed a trial of void. He says that he was able to urinate without issue after leaving the hospital until yesterday evening. He says last time he was able to
urinate was roughly 8 or 9 PM and has not been able to pass urine since. He is having increasing suprapubic discomfort and so he came to the emergency room for assessment. He denies any back or flank pain. He denies any fevers or chills. He has
not been having any dysuria or change in his urinary frequency�he notes that he urinates frequently at baseline due to BPH. He denies any other complaints today. He was discharged on Flomax and he reports he has been compliant. He notably has an
appoint with urology upcoming on Sunday.
Past History
Past History
ED Past Medical History: Cancer (Skin), CVA (June 2021 acute ischemic left temporoparietal stroke), HTN, Hypercholesterolemia and Other (dizziness, aphasia, orthostatic hypotension, Gout)
ED Past Surgical History: Cardiac (Link recorder implanted) and Tonsilectomy
Social History
Tobacco: Former smoker
Alcohol: None
Drug: None
Personal:
Living: with family
Employment: Retired
Family History
Family History: Other (reviewed and non-contributory)
Review of Systems
Review of Systems
All Other Systems: ROS reviewed and negative except as documented in HPI and ROS
Constitutional: Denies fever or chills
Respiratory: Denies trouble breathing
Cardiac: Denies chest pain
ABD/GI: Reports abdominal pain; Denies nausea, vomiting or constipated
: Reports difficulty voiding; Denies dysuria, frequency or flank pain
Musculoskeletal: Denies neck pain or back pain
Neurological: Denies dizzy or headache
Phy Exam
Physical Exam
Physical Exam:
General: Awake, alert, oriented x3; no acute distress
Head: Normocephalic, atraumatic
Eyes: Conjunctiva normal
Throat: Airway intact, handling secretions
Neck: Trachea midline, supple without meningismus
Lungs: Clear to auscultation bilaterally, no wheezing, rales, rhonchi
Heart: Regular rate and rhythm, no murmurs, gallops, or rubs
Abd: Soft, non distended, mild tenderness and fullness to the suprapubic region
Back: No CVA tenderness
Skin: no rash
Extremities: Warm and well-perfused
Scores
Heart Failure Risk
Heart Failure Risk Score: Not Applicable
Heart Score for Chest Pain Patients
STEMI patient?: Not applicable
Withdrawal Assessment of Alcohol
Withdrawal Assessment Completed?: Not applicable
Course
Orders/Labs/Results
Orders:
Orders
03/14/24 06:38
Cefdinir [Omnicef] 300 mg PO NOW STA
03/14/24 06:43
Urinalysis Reflex To Culture Urgent
Date Specimen was Collected: 03/14/24
Time Specimen was Collected: 06:27
Urine Microscopic Reflex Cult Urgent
Abnormal Lab Results
03/14/24
06:43
Ur Occult Blood Reflex 4+ A
(Negative)
Urine RBC 30-40 A /HPF
(0-2)
Urine Bacteria (Reflex) Few A
(Negative)
03/14/24 06:13
03/14/24 06:13
Vital Signs
Initial and Last Documented VS:
Initial Vital Signs
Temp Pulse Resp BP Pulse Ox
36.4 C 95 22 185/110 99
03/14/24 05:29 03/14/24 05:29 03/14/24 05:29 03/14/24 05:29 03/14/24 05:29
Last Documented Vital Signs
Temp Pulse Resp BP Pulse Ox
36.4 C 95 22 138/100 99
03/14/24 05:29 03/14/24 05:29 03/14/24 05:29 03/14/24 06:02 03/14/24 05:29
MDM/Problems Addressed
Differential Diagnosis Includes:
Acute urinary retention, UTI
MDM/Problems Addressed:
83-year-old male presents for evaluation of difficulty passing urine since yesterday evening; had recent admission with syncope and urinary retention requiring catheter for 24 hours. Hypertensive in triage normalized by my assessment. Physical
exam as above. Bladder scan here postvoid showed 600 cc retained urine. Will plan to place Costa catheter. Will send a urinalysis. Reassess after the above. Likely discharge with catheter in place to follow-up with urology as scheduled in a few
days.
Catheter placed send patient feeling much better after Costa in place. Free drainage of somewhat dark yellow urine. No blood or clots. Urinalysis sent off.
UA shows positive blood but no significant amount of bacteria or pyuria�low suspicion for acute infection but given this is his second catheter in the past week will cover with short course of antibiotics. Will discharge with outpatient urology
follow-up as planned. Patient happy with this plan. Spoke about return precautions and all questions were answered.
Chronic conditions affecting care:
BPH
Acute Exacerbation and/or Progression of Chronic Illness:
Acutely hypertensive improved without intervention continue to monitor but no emergent indication for antihypertensive treatment
Acute Exacerbation and/or Progression of Chronic Illness: HTN
*Pulse Oximetry
Patient hypoxic: no
*Critical Care Note
Total Time (30-74mins, 75-104mins- exclusive of procedures): Not Applicable
Data Reviewed
Review of Other/Old Records Reveals: Labs, Records and Discharge Summary
Source: patient and spouse
ED Attending Note
-
Portions of this chart may have been created with voice recognition software.� Occasional wrong word or��sound alike� substitutions may have occurred due to the inherent limitations of voice recognition software.
Discharge Plan
Departure
Patient Disposition: Home (Routine Discharge)
Date of Disposition: 03/14/24
Time of Disposition: 07:52
Patient with high blood pressure during this ER visit?: Yes
Discharge Problem:
Acute urinary retention
Instructions: How to Care for Your Costa Catheter, Male
Prescriptions:
New
cefdinir 300 mg capsule
300 mg PO BID Qty: 10 0RF
No Action
metoprolol succinate 25 mg tablet extended release 24 hr
25 mg PO DAILY Qty: 30 0RF
rosuvastatin 40 mg Tablet
40 mg PO MOWEFR
Eliquis 5 mg Tablet
5 mg PO BID
finasteride 5 MG tablet
5 mg PO DAILY Qty: 0 0RF
Referrals:
Leif Rincon Jr., MD [Active] - Keep scheduled appt (You should keep your scheduled appointment with urology)
Activity Restrictions/Additional Instructions:
Thank you for visiting the Emergency Department at [facility]
1. Please schedule a follow up appointment as directed. Call first thing tomorrow morning to make an appointment.
2. If indicated, please take your medications as instructed and indicated on discharge paperwork.
3. If any of your symptoms do not improve, or persist, or become more severe within 6-12 hours, please return to the emergency department for further care.
4. Please return to the emergency department if you develop a headache, neck pain/stiffness, fever greater than 100.4F, chest pain, shortness of breath, persistent nausea, vomiting, slurred speech, difficulty walking, numbness/tingling, weakness,
signs of infection or any other symptoms that are worrisome to you.
Please call [phone] if you have any questions.
Interventions
Interventions:
*Risk Screen - Suicide Last Done: 03/14/24 05:29
*General Assessment Last Done: 03/14/24 05:29
*Neglect/Abuse Screening Last Done: 03/14/24 05:29
ED- Fall Risk Assessment Last Done: 03/14/24 05:29
*ED COVID-19 Vaccine History Last Done: 03/14/24 05:29
ED-Male Genitourinary Assessment Last Done: 03/14/24 05:52
Discharge Date and Time
Print Language: AUSTRALIAN
[2024-03-14] MEDS: OMNICEF 300 MG PO (07:12)
[2024-03-14 07:13] LABS: Urine Albumin Negative (Neg - Trace); Urine Bilirubin Negative (Negative); Urine Character Clear (Clear); Urine Color Yellow; Urine Glucose Negative (Negative); Urine Ketone Negative (Negative); Urine Leukocyte Negative (Negative); Urine Nitrite Negative (Negative); Urine Occult Blood 4+ (Negative); Urine Urobilinogen Negative (Neg - 1+)
[2024-03-14 07:32] LABS: Urine Bacteria Few (Negative); Urine Red Blood Cell 30-40 /HPF (0-2); Urine Squamous Cell 0-2 /LPF (Few)
== END 2024-03-14 09:06 | disposition home or self-care (01) ==
LOC: EMR 05:27
PROVIDERS: EMERGENCY PHYSICIAN Emergency Medicine; FAMILY PHYSICIAN Family Medicine
DX: N40.1 Benign prostatic hyperplasia with lower urinary tract symptoms (principal); I10 Essential (primary) hypertension; E78.00 Pure hypercholesterolemia, unspecified; Z85.828 Personal history of other malignant neoplasm of skin; Z86.73 Personal history of transient ischemic attack (TIA), and cerebral infarction without residual deficits; Z87.891 Personal history of nicotine dependence
CPT/HCPCS: 99282; 81003; 81015

== ENCOUNTER 2024-03-28 01:15 | Emergency (ER) | payer MEDICARE, OTHER, SELFPAY ==
[2024-03-28 01:17] VITALS: BP 188/106
--- NOTE | 2024-03-28 01:39 | ED.GENMED ---
Addendum entered and electronically signed by Koko Hairstno PA-C 03/30/24 08:17:
On cefdinir, awaiting final C&S
Original Note:
History of Present Illness
<Mark Bustamante DO - Last Filed: 03/28/24 02:48>
General
Chief Complaint: Urinary Symptoms
Source: patient
Exam Limitations: none
Time Seen by Provider: 03/28/24 01:21
<Anjel Medrano MD, Resident - Last Filed: 03/28/24 02:35>
History of Present Illness
History of Present Illness:
83-year-old male with history of BPH presented to the ED with acute urinary retention. Patient states that he was unable to urinate for 1 day. He denies any denies abdominal pain.
Past History
<Mark Bustamante DO - Last Filed: 03/28/24 02:48>
Past History
ED Past Medical History: Cancer (Skin), CVA (June 2021 acute ischemic left temporoparietal stroke), HTN, Hypercholesterolemia and Other (dizziness, aphasia, orthostatic hypotension, Gout)
ED Past Surgical History: Cardiac (Link recorder implanted) and Tonsilectomy
Social History
Tobacco: Former smoker
Alcohol: None
Drug: None
Personal:
Living: with family
Employment: Retired
Family History
Family History: Other (reviewed and non-contributory)
Phy Exam
<Anjel Medrano MD, Resident - Last Filed: 03/28/24 02:35>
General Physical Exam
General Presentation: well appearing
Cardiovascular Exam
Cardiovascular Exam: regular rate/rhythm
Pulmonary Exam
Pulmonary Exam: lungs clear
Gastrointestinal Exam
Gastrointestinal Exam: normal bowel sounds, non tender and other (fullness to palpate )
Genitourinary Exam Male
Exam Male: other (Costa's catheter )
Course
<Mark Bustamante, DO - Last Filed: 03/28/24 02:48>
Orders/Labs/Results
Orders:
Orders
03/28/24 01:48
Urinalysis Reflex To Culture Urgent
Date Specimen was Collected: 03/28/24
Time Specimen was Collected: 01:48
Urine Microscopic Reflex Cult Urgent
Urine Culture Urgent
RUDI Source: U
Specimen Description:
Date Specimen was Collected: 03/28/24
Time Specimen was Collected: 01:48
03/28/24 01:54
Cosat Placement- Treatment ONCE
Reason for insertion: Acute Retention
Abnormal Lab Results
03/28/24
01:48
Urine Ketones Trace A
(Negative)
Ur Occult Blood Reflex 4+ A
(Negative)
Leukocyte Esterase Rfl 2+ A
(Negative)
Urine RBC >100 A /HPF
(0-2)
Urine WBC (Reflex) >100 A /HPF
(0-5)
Urine Bacteria (Reflex) Many A
(Negative)
Urine Albumin (Reflex) 1+ A
(Neg - Trace)
Vital Signs
Initial and Last Documented VS:
Initial Vital Signs
Temp Pulse Resp BP Pulse Ox
98.2 F 100 26 188/106 98
03/28/24 01:17 03/28/24 01:17 03/28/24 01:17 03/28/24 01:17 03/28/24 01:17
Last Documented Vital Signs
Temp Pulse Resp BP Pulse Ox
98.2 F 76 18 118/70 98
03/28/24 01:17 03/28/24 02:39 03/28/24 02:39 03/28/24 02:39 03/28/24 02:39
<Anjel Medrano MD, Resident - Last Filed: 03/28/24 02:35>
Orders/Labs/Results
Orders:
Orders
03/28/24 01:48
Urinalysis Reflex To Culture Urgent
Date Specimen was Collected: 03/28/24
Time Specimen was Collected: 01:48
Urine Microscopic Reflex Cult Urgent
Urine Culture Urgent
RUDI Source: U
Specimen Description:
Date Specimen was Collected: 03/28/24
Time Specimen was Collected: 01:48
03/28/24 01:54
Costa Placement- Treatment ONCE
Reason for insertion: Acute Retention
Abnormal Lab Results
03/28/24
01:48
Urine Ketones Trace A
(Negative)
Ur Occult Blood Reflex 4+ A
(Negative)
Leukocyte Esterase Rfl 2+ A
(Negative)
Urine RBC >100 A /HPF
(0-2)
Urine WBC (Reflex) >100 A /HPF
(0-5)
Urine Bacteria (Reflex) Many A
(Negative)
Urine Albumin (Reflex) 1+ A
(Neg - Trace)
Vital Signs
Initial and Last Documented VS:
Initial Vital Signs
Temp Pulse Resp BP Pulse Ox
98.2 F 100 26 188/106 98
03/28/24 01:17 03/28/24 01:17 03/28/24 01:17 03/28/24 01:17 03/28/24 01:17
Last Documented Vital Signs
Temp Pulse Resp BP Pulse Ox
98.2 F 76 18 118/70 98
03/28/24 01:17 03/28/24 02:39 03/28/24 02:39 03/28/24 02:39 03/28/24 02:39
<Anjel Medrano MD, Resident - Last Filed: 03/28/24 02:35>
*Critical Care Note
Total Time (30-74mins, 75-104mins- exclusive of procedures): Not Applicable
<Anjel Medrano MD, Resident - Last Filed: 03/28/24 02:35>
Update Note
Update Note:
Acute urinary retention
Costa's catheter was inserted in the ED which drained bloody urine. UA showed 4+ rbc, 2+ leukocyte, no nitrates.
ED Attending Note
<Mark Bustamante DO - Last Filed: 03/28/24 02:48>
ED Attending Note
Patient seen and examined by attending physician: Yes
I performed the substantive portion of visit, reviewed & personally made and approve the management plan that is documented in note by myself or SANIYA.: Yes
ED Attending Note:
Pleasant 83-year-old male presents with acute urinary retention. He sees Dr. Luna. He was at the urologist 3 times last week. He is on antibiotics. Patient was seen in conjunction with the professor of family medicine. I have reviewed and agree
with her history and treatment plan. Patient is in no acute distress after 1000 cc of urine was expelled from the bladder. Leg bag is in place. Patient will continue antibiotics.
-
Portions of this chart may have been created with voice recognition software.� Occasional wrong word or��sound alike� substitutions may have occurred due to the inherent limitations of voice recognition software.
Discharge Plan
Departure
Patient Disposition: Home (Routine Discharge)
Date of Disposition: 03/28/24
Time of Disposition: 02:29
Patient with high blood pressure during this ER visit?: Yes
Condition: Good
Discharge Problem:
Acute urinary retention
Instructions: Urinary retention, BLOOD PRESSURE
Prescriptions:
No Action
metoprolol succinate 25 mg tablet extended release 24 hr
25 mg PO DAILY Qty: 30 0RF
rosuvastatin 40 mg Tablet
40 mg PO MOWEFR
Eliquis 5 mg Tablet
5 mg PO BID
finasteride 5 MG tablet
5 mg PO DAILY Qty: 0 0RF
cefdinir 300 mg capsule
300 mg PO BID Qty: 10 0RF
Referrals:
Raymond Luna MD [Non-Admitting Privileges] -
Leon Luna MD [Active] -
Activity Restrictions/Additional Instructions:
no restrictions.
Follow up with urology Dr Luna.
Please continue to take your antibiotic as previously directed.
It was a pleasure meeting you and taking part in your care. We hope for your continued healing and wellness.
Please read discharge instructions in their entirety. However, they are for general education and may not describe your exact diagnosis at discharge. Information on your ER visit and medical conditions were discussed with you along with appropriate
follow up information...
If indicated, please take your medications as instructed and indicated on discharge paperwork.
Please schedule a follow up appointment as directed. Call to schedule an appointment
Please return to the emergency department with ANY change in, persisting, or worsening of symptoms. If any of your symptoms do not improve, or persist, or become more severe within 6-12 hours, please return to the emergency department for further
care.
Please return to the emergency department if you develop a headache, neck pain/stiffness, fever greater than 100.4F, chest pain, shortness of breath, persistent nausea, vomiting, slurred speech, difficulty walking, numbness/tingling, weakness, signs
of infection or any other symptoms that are worrisome to you.
If you have any questions or concerns please do not hesitate to call the Hospital at or E-mail me directly at [email or web address]
Interventions
Interventions:
*Risk Screen - Suicide Last Done: 03/28/24 01:50
*General Assessment Last Done: 03/28/24 01:50
*Neglect/Abuse Screening Last Done: 03/28/24 01:50
ED- Fall Risk Assessment Last Done: 03/28/24 01:50
*ED COVID-19 Vaccine History Last Done: 03/28/24 01:50
*Nursing Disposition Last Done: 03/28/24 02:40
ED-Male Genitourinary Assessment Last Done: 03/28/24 01:50
Discharge Date and Time
Discharge Date/Time: 03/28/24 02:46
Print Language: BELARUSIAN
[2024-03-28 01:50] VITALS: BMI 32.1
[2024-03-28 01:59] LABS: Urine Albumin 1+ (Neg - Trace); Urine Bilirubin Negative (Negative); Urine Character Slightly Cloudy (Clear); Urine Color Amber; Urine Glucose Negative (Negative); Urine Ketone Trace (Negative); Urine Leukocyte 2+ (Negative); Urine Nitrite Negative (Negative); Urine Occult Blood 4+ (Negative); Urine Urobilinogen Negative (Neg - 1+); Urine pH 6.5 (5.0-9.0)
[2024-03-28 02:18] LABS: Urine Bacteria Many (Negative); Urine Red Blood Cell >100 /HPF (0-2); Urine White Cell >100 /HPF (0-5)
[2024-03-28 02:39] VITALS: BP 118/70
== END 2024-03-28 02:46 | disposition home or self-care (01) ==
LOC: EMR 01:15
PROVIDERS: EMERGENCY PHYSICIAN Student in an Organized Health Care Education/Training Program; FAMILY PHYSICIAN Family Medicine
DX: R33.8 Other retention of urine (principal); N40.1 Benign prostatic hyperplasia with lower urinary tract symptoms; I10 Essential (primary) hypertension; E78.00 Pure hypercholesterolemia, unspecified; Z85.828 Personal history of other malignant neoplasm of skin; Z86.73 Personal history of transient ischemic attack (TIA), and cerebral infarction without residual deficits; Z87.891 Personal history of nicotine dependence
CPT/HCPCS: 99282; 51702; 81003; 81015; 87077; 87086; 87186

== ENCOUNTER 2024-03-31 20:53 | Inpatient (IN) | payer MEDICARE, OTHER, SELFPAY ==
[2024-03-31 15:46] VITALS: BP 157/92
[2024-03-31 16:19] LABS: % Eosinophils 3.6 % (0-6); % Immature Granulocytes 0.3 % (0-0.5); % Lymphocytes 15.6 % (20.5-51.1); % Monocytes 13.7 % (1.7-9.3); % Neutrophils 65.8 % (42.2-75.2); Absolute Basophils 0.1 10^3/uL (0-0.2); Absolute Eosinophils 0.3 10^3/uL (0-0.7); Absolute Lymphocytes 1.1 10^3/uL (1.2-3.4); Absolute Monocytes 0.9 10^3/uL (0.1-0.6); Absolute Neutrophils 4.5 10^3/uL (1.4-6.5); Hematocrit 40.2 % (39.0-52.0); Mean Corp Hgb Conc. 34.8 g/dL (33.0-37.0); Mean Corpuscular Hgb 28.8 pg (27.0-31.0); Mean Corpuscular Volume 82.7 fL (80.0-94.0); Mean Platelet Volume 10.6 fL (7.4-10.4); Nucleated Red Blood Cells % 0 % (-); Platelet Count 244 10^3/uL (130-400); Red Blood Cell Count 4.86 10^6/uL (4.70-6.10); White Blood Cell Count 6.9 10^3/uL (4.8-10.8)
[2024-03-31 16:30] LABS: INR 1.19; PT 14.9 Sec (11.4-14.6)
[2024-03-31 16:31] LABS: APTT 31.4 Sec (23.4-35.0)
[2024-03-31 16:33] LABS: ALT (SGPT) 18 U/L (0-50); AST (SGOT) 27 U/L (17-59); Albumin 4.8 g/dl (3.5-5.0); Alkaline Phosphatase 68 U/L (38-126); Blood Urea Nitrogen 14 mg/dl (9-20); Calcium 10.4 mg/dl (8.4-10.2); Carbon Dioxide 25 mmol/L (22-30); Chloride 101 mmol/L (98-107); Glucose 107 mg/dl (70-99); Potassium 4.9 mmol/L (3.5-5.1); Sodium 136 mmol/L (135-145); Total Bilirubin 0.9 mg/dl (0.2-1.3); Total Protein 7.1 g/dl (6.3-8.2); eGFR > 60.00
[2024-03-31 16:34] LABS: Urine Albumin 2+ (Neg - Trace); Urine Bilirubin 1+ (Negative); Urine Character Very Cloudy (Clear); Urine Color Amber; Urine Glucose Negative (Negative); Urine Ketone 1+ (Negative); Urine Leukocyte 2+ (Negative); Urine Nitrite Positive (Negative); Urine Occult Blood 4+ (Negative); Urine Urobilinogen 1+ (Neg - 1+)
[2024-03-31 17:07] LABS: Urine Red Blood Cell >100 /HPF (0-2)
[2024-03-31 18:19] VITALS: BMI 29.9
--- NOTE | 2024-03-31 19:20 | ED.GENMED ---
History of Present Illness
General
Chief Complaint: Male Genito-Urinary Symptoms
Source: patient and records
Time Seen by Provider: 03/31/24 19:06
History of Present Illness
History of Present Illness:
83-year-old male with past medical history of CVA, hypertension, hyperlipidemia, BPH presenting back to the emergency department after receiving a call from this emergency department earlier today after patient was found to have a quinolone
resistant Pseudomonas urinary tract infection. Patient was seen in this hospital on Sunday evening for urinary retention and had a Costa catheter placed. He states that he would intermittently self catheterize but notes that he was still unable to
relieve the urinary retention. He denies any fevers, chills, rigors, back or flank pain, nausea, vomiting or any other concerns presently and states he otherwise is quite well. No other concerns at this time.
Past History
Past History
ED Past Medical History: Cancer (Skin), CVA (June 2021 acute ischemic left temporoparietal stroke), HTN, Hypercholesterolemia and Other (dizziness, aphasia, orthostatic hypotension, Gout)
ED Past Surgical History: Cardiac (Link recorder implanted) and Tonsilectomy
Social History
Tobacco: Former smoker
Alcohol: None
Drug: None
Personal:
Living: with family
Employment: Retired
Family History
Family History: Other (reviewed and non-contributory)
Review of Systems
Review of Systems
All Other Systems: ROS reviewed and negative except as documented in HPI and ROS
Phy Exam
Physical Exam
Physical Exam:
GENERAL: Alert , in no apparent distress
EYE: conjunctiva clear
NECK: Supple
ENT: mmm.
CARDIAC: Regular rate and rhythm
LUNGS: Clear breath sounds bilaterally, no acute respiratory distress, no wheezes/rales/rhonchi
Abdomen: Soft, nontender, nondistended
Genitourinary: Costa catheter in place
NEUROLOGICAL: Alert and oriented
SKIN: Warm and dry, skin intact.
MUSCULOSKELETAL: well perfused.
PSYCH: Normal and appropriate interaction.
Scores
Heart Failure Risk
Heart Failure Risk Score: Not Applicable
Heart Score for Chest Pain Patients
STEMI patient?: Not applicable
Withdrawal Assessment of Alcohol
Withdrawal Assessment Completed?: Not applicable
Course
Orders/Labs/Results
Orders:
Orders
03/31/24 16:09
CMP [Comprehensive Metabolic Panel] Urgent
Complete Blood Count/With Diff Urgent
PTT Urgent
Prothrombin Time Urgent
Urinalysis Reflex To Culture Urgent
Date Specimen was Collected: 03/31/24
Time Specimen was Collected: 15:52
Urine Microscopic Reflex Cult Urgent
Urine Culture Urgent
RUDI Source: U
Specimen Description:
Date Specimen was Collected: 03/31/24
Time Specimen was Collected: 15:52
03/31/24 19:10
Cefepime HCl [Maxipime] 2,000 mg IV NOW STA
03/31/24 19:26
Gentamicin Sulfate [Gentamicin] 170 mg 0.9% Sodium Chloride [Nss] 50 ml IV NOW
Abnormal Lab Results
03/31/24
16:09
MPV 10.6 H fL
(7.4-10.4)
Absolute Lymphs (auto) 1.1 L 10^3/uL
(1.2-3.4)
Absolute Monos (auto) 0.9 H 10^3/uL
(0.1-0.6)
Lymphocytes % 15.6 L %
(20.5-51.1)
Monocytes % 13.7 H %
(1.7-9.3)
PT 14.9 H Sec
(11.4-14.6)
Glucose 107 H mg/dl
(70-99)
Calcium 10.4 H mg/dl
(8.4-10.2)
Urine Ketones 1+ A
(Negative)
Ur Occult Blood Reflex 4+ A
(Negative)
Urine Nitrite (Reflex) Positive A
(Negative)
Urine Bilirubin 1+ A
(Negative)
Leukocyte Esterase Rfl 2+ A
(Negative)
Urine RBC >100 A /HPF
(0-2)
Urine Albumin (Reflex) 2+ A
(Neg - Trace)
03/31/24 16:09
03/31/24 16:09
Vital Signs
Initial and Last Documented VS:
Initial Vital Signs
Temp Pulse Resp BP Pulse Ox
99.4 F 78 18 157/92 97
03/31/24 15:46 03/31/24 15:46 03/31/24 15:46 03/31/24 15:46 03/31/24 15:46
Last Documented Vital Signs
Temp Pulse Resp BP Pulse Ox
99.4 F 78 18 157/92 97
03/31/24 15:46 03/31/24 15:46 03/31/24 15:46 03/31/24 15:46 03/31/24 18:21
MDM/Problems Addressed
MDM/Problems Addressed:
83-year-old male presenting back to the emergency department for evaluation and ultimately admission for quinolone resistant Pseudomonas urinary tract infection. Patient is otherwise well-appearing and in no acute distress. Urine culture reviewed.
Patient is sensitive to Maxipime and gentamicin so we will treat with this. Labs were otherwise initiated in triage and are unremarkable. Will notify hospitalist team for admission. Patient known to urology here at this facility.
*Pulse Oximetry
Patient hypoxic: no
*Critical Care Note
Total Time (30-74mins, 75-104mins- exclusive of procedures): Not Applicable
Data Reviewed
Review of Other/Old Records Reveals: Labs and Records
Source: patient and records
Patient Management
Discussion with other providers: Hospitalist
Escalation/DeEscalation of care consider admission/obs:
Hospitalist team was notified and accepts for continued evaluation and treatment
ED Attending Note
-
Portions of this chart may have been created with voice recognition software.� Occasional wrong word or��sound alike� substitutions may have occurred due to the inherent limitations of voice recognition software.
Discharge Plan
Departure
Patient Disposition: Admit
Date of Disposition: 03/31/24
Time of Disposition: 19:20
Presentation/result/management discussed w/ accepting MD/DO: Hospitalist
Discharge Problem:
Complicated UTI (urinary tract infection)
Prescriptions:
No Action
metoprolol succinate 25 mg tablet extended release 24 hr
25 mg PO DAILY Qty: 30 0RF
rosuvastatin 40 mg Tablet
20 mg PO DAILY
Eliquis 5 mg Tablet
5 mg PO BID
finasteride 5 MG tablet
5 mg PO DAILY Qty: 0 0RF
Ocuvite Tablet
1 tab PO DAILY
alfuzosin 10 mg tablet extended release 24 hr
10 mg PO QPM
Referrals:
Mark Moyer DO [Family Provider] -
Interventions
Interventions:
*Risk Screen - Suicide Last Done: 03/31/24 16:05
*General Assessment Last Done: 03/31/24 18:21
*Neglect/Abuse Screening Last Done: 03/31/24 16:05
*ED COVID-19 Vaccine History Last Done: 03/31/24 15:46
ED-Male Genitourinary Assessment Last Done: 03/31/24 18:21
Discharge Date and Time
Print Language: GUINEAN
[2024-03-31] MEDS: MAXIPIME 2000 MG IV (19:42)
--- NOTE | 2024-03-31 20:03 | HPS.HSE ---
Addendum entered and electronically signed by Brandon Hamilton MD 04/01/24 00:21:
Correction:
Acute onset Hematuria - Cath trauma vs Cystitis : clear urine following <del>cath</del> <del>change</del> <del>at</del> <del>ER</del> when cath was�flushed and drained� at ER
Original Note:
Family Physician
-
Family Physician: Mark Moyer
Chief Complaint
-
received call from Lab for POS UCx and blood in foleys cath
History of Present Illness
HPI
83F on Eliquis, HX CVA, HX BPH, recent placement of chr indwelling F Cath 0n 03/28/24 for acute urinary retentionas of ER visit on 03/28/24, seen at ER today for admission evalaution
Reports received call from Lab for POS UCx with Pseudomonas sent on 03/28/24
- wearing chr indwelling F Cath on arrival
- noted hematuric urine in Costa bag
- onset of hematuria a couple of hrs before arrival
- on 03/28/24 ER visit ; Dxed acute urinary retention, Costa placed and UCx sent
- He sees Dr. Luna /urologist 3 times last week and on ABx. DC'd on Cefdinir 300mg BID for 5 days
Medical History
Past Medical History
Past Medical History: Reports Other
Additional Past Medical History:
Cancer (Skin), CVA, HTN and Hypercholesterolemia, BPH
Past Surgical History: Reports Other
Additional Past Surgical History:
Cardiac (Link recorder) and Tonsilectomy)
Social History
Tobacco: Former Smoker
Alcohol: None
Drug: None
Personal:
Living: With Family
Family History
Family History: Not pertinent
Allergies / Home Medications
Allergies reflects when Allergies were last updated in elicit.
Home Medications with original date entered in elicit
Allergy/Medication List:
Allergies
Allergy/AdvReac Type Severity Reaction Status Date / Time
No Known Allergies Allergy Verified 03/31/24 15:51
Home Medications
metoprolol succinate 25 mg tablet,extended release 24 hr 25 mg PO DAILY #30 tabs 06/25/23
apixaban 5 mg tablet (Eliquis) 5 mg PO BID 03/10/24
rosuvastatin 40 mg tablet 20 mg PO DAILY 03/10/24
finasteride 5 mg tablet 5 mg PO DAILY Urinary issue #0 tabs 03/11/24
alfuzosin 10 mg tablet,extended release 24 hr 10 mg PO QPM 03/31/24
vitamin A-vitamin C-vit E-min tablet 1 tab PO DAILY 03/31/24
Review of Systems
-
Constitutional: Reports No Symptoms
EENT: Reports No Symptoms
Respiratory: Reports No Symptoms
Cardiac: Reports No Symptoms
Abdomen/GI: Reports No Symptoms
: Reports See HPI and Bleeding
Musculoskeletal: Reports No Symptoms
Skin: Reports No Symptoms
Neurological: Reports No Symptoms
Endocrine: Reports No Symptoms
Hematologic/Lymphatic: Reports No Symptoms
Psych: Reports No Symptoms
Physical Exam
Vital Signs
Vital Signs
Temp Pulse Resp BP Pulse Ox
99.4 F 78 18 157/92 97
03/31/24 15:46 03/31/24 15:46 03/31/24 15:46 03/31/24 15:46 03/31/24 18:21
Physical Exam
Genito-urinary: Other (wearing Costa cath , hematuria noted )
Laboratory Results
-
03/31/24 16:09
03/31/24 16:09
Laboratory Results
PT 14.9 Sec (11.4-14.6) H 03/31/24 16:09
INR 1.19 03/31/24 16:09
APTT 31.4 Sec (23.4-35.0) 03/31/24 16:09
Total Bilirubin 0.9 mg/dl (0.2-1.3) 03/31/24 16:09
AST 27 U/L (17-59) 03/31/24 16:09
ALT 18 U/L (0-50) 03/31/24 16:09
Alkaline Phosphatase 68 U/L (38-126) 03/31/24 16:09
Data Reviewed
-
Lab Data: Labs Reviewed by me
Old Records: Reviewed
Impression/Plan
-
Reviewed VS: T 99.4 otherwise unremarkable
Data
unremarkable CBC
unremarkable CMP
INR 1.19
eGFR > 60
UA ; obscured with numerous RBCs. POS Nitrites
03/31/24 UCx; sent
03/28/24 UCx POS Pseudomass - sent to C[facility], resistant to FQ ABx
TTE 03/11/24:
Normal biventricular size and systolic function without regional wall motion abnormality.
Mild concentric left ventricular hypertrophy.
Stage I diastolic dysfunction suggestive of abnormal relaxation.
Aortic sclerosis without stenosis.
Compared to the prior on 06/25/2023, pulmonary pressure has decreased from 50 to 55 mmHg to 35 mmHg
Last hospitalist admission: 06/24/2023 - 06/25/2023
DISCHARGE DIAGNOSES:
1. Dizziness.
2. Symptomatic bradycardia.
3. Non-myocardial infarction troponin elevation
ASSESSMENT & PLAN
Pending Rx reconciliation
Acute onset Hematuria - Cath trauma vs Cystitis : clear urine following cath change at ER
POS UCx POS Pseudomass - sensitive to CFP, resistant to FQ ABx
On Indwelling F cath placed since
Acute urinary retention due to BPH
- Held Eliquis
- Switch to IV CFP in place of Cefdinir
- IVF
- Observe any passage of blood clot , if so to consider CBI
- cont Finasteride
- ID consult
- Uro consult
In NSR
HX Prx AF
- held Eliquis due to Hematuria
- cont. Metoprolol
Essential hypertension
- c/w ACID PATROLLER metoprolol.
Hyperlipidemia
- continue Crestor.
Obesity due to excess calories
DVT Px: SCD
Full code
IP TLM
[2024-03-31] MEDS: GENTAMICIN 54.25 MG IV (20:23)
[2024-03-31] MEDS: FLUSH (NSS) 1 FLUSH IV (21:15)
[2024-03-31 21:47] VITALS: BP 141/76
[2024-03-31 22:00] VITALS: BP 186/89
[2024-03-31] MEDS: NSS 1000 IV (22:14)
--- NOTE | 2024-03-31 22:22 | PTCARENOTE ---
Received pt from ED via stretcher. Pt AAOx3, VSS, no complaints at this. Oriented to floor, call larkin within reach
[2024-03-31 23:10] VITALS: BP 136/79
[2024-04-01] MEDS: STERILE WATER FOR INJECTION 10 ML IV ×4 (03:40→21:42)
[2024-04-01] MEDS: MAXIPIME 1000 MG IV ×3 (03:40→14:43)
[2024-04-01] MEDS: TYLENOL 650 MG PO (03:46)
[2024-04-01] MEDS: COMPAZINE 5 MG IV (04:03)
[2024-04-01 06:59] VITALS: BP 112/67
[2024-04-01 07:25] LABS: Hematocrit 38.4 % (39.0-52.0); Hemoglobin 13.2 g/dL (13.0-18.0); Mean Corp Hgb Conc. 34.4 g/dL (33.0-37.0); Mean Corpuscular Hgb 28.4 pg (27.0-31.0); Mean Corpuscular Volume 82.6 fL (80.0-94.0); Mean Platelet Volume 10.2 fL (7.4-10.4); Platelet Count 223 10^3/uL (130-400); Red Blood Cell Count 4.65 10^6/uL (4.70-6.10); White Blood Cell Count 8.4 10^3/uL (4.8-10.8)
--- NOTE | 2024-04-01 07:40 | W.PN.UPDATE ---
Addendum entered and electronically signed by Leon Luna MD 04/01/24 13:13:
CT Urogram reviewed => no acute urologic pathology, massive prostate gland (238 cc).
Maintain Costa catheter on discharge.
Plan for TOV in office in 1 week.
Original Note:
Update Note
Progress Note Update
83M recently seen as new patient in office 03/17 for acute urinary retention and post-catheter insertion hematuria.
H/o BPH on medical therapy.
On Eliquis for h/o CVA.
03/14: ER visit for AUR - catheter placed w/ clear yellow UOP.
03/17:: Urology office visit - finasteride continued, alfuzosin started, Eliquis held temporarily for hematuria.
03/24: TOV w/ blood-tinged UOP and PVR 134 cc. Bactrim DS BID x5 days started.
03/28: ER visit for recurrent AUR - catheter inserted w/ clear UOP, UCx sent.
03/31: Patient asked to return to ER for admission for treatment w/ IV abx (03/28 UCx => Pseudomonas w/ FQ resistance)
H/H stable
Cr normal
UA grossly indicative of UTI (+nitrites/WBCs)
Costa w/ clear yellow UOP this AM.
Plan:
- CT Urogram ordered
- Maintain Costa catheter on discharge
- IV abx w/ 7-10 day course for complicated UTI recommended on discharge
- Plan for outpatient F/U in 1 week for [facility] teaching (patient has prior experience)
- Cystoscopy tentatively scheduled for 04/22/24
D/w patient.
D/w Hospitalist.
[2024-04-01] MEDS: PROSCAR 5 MG PO (07:59)
[2024-04-01] MEDS: TOPROL XL 25 MG PO (07:59)
[2024-04-01 08:08] LABS: Blood Urea Nitrogen 12 mg/dl (9-20); Calcium 9.4 mg/dl (8.4-10.2); Carbon Dioxide 21 mmol/L (22-30); Chloride 103 mmol/L (98-107); Estimated Creatinine Clearance 64 ml/min; Glucose 98 mg/dl (70-99); Potassium 4.6 mmol/L (3.5-5.1); Sodium 134 mmol/L (135-145); eGFR > 60.00
--- NOTE | 2024-04-01 09:42 | W.PN.HOSP.TC ---
Today's Communication/Plan
-
see A/P
Assessment / Plan
Assessment / Plan
HPI: 83 yo F PMH Prx AF, CVA, BPH, recent placement of chronic indwelling Pulido Catheter on 03/28/24 for acute urinary retention; p/w outpatient urine culture positive for Pseudomonas.
He has also noted hematuria in his Pulido bag that started a few days ago.
His outpatient uro is Dr. Luna. He was DC'ed on Cefdinir 300mg BID for 5 days.
A/P:
# Complicated UTI/ CAUTI with Pseudomonas resistant to Cipro/Levaquin
# Acute onset Hematuria, resolved
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
Pulido was changed in ED, and hematuria has resolved
with resolution of hematuria, resume ALTERATION SPECIALIST Eliquis
Cont cefepime
cont Finasteride
CT urogram unrevealing: Significantly enlarged prostate gland extending into the base of the bladder, compatible with hyperplasia.
ID consult
Uro on board
# paroxysmal A fib
with resolution of hematuria, resume ALTERATION SPECIALIST Eliquis
Cont Metoprolol
# Essential hypertension
c/w metoprolol.
# Hyperlipidemia
continue Crestor.
# Obesity due to excess calories
DVT Px: resume ALTERATION SPECIALIST Eliquis
Full code
Anticipated Discharge: > 48 hours
Subjective/Interval History
-
Date of Service: April 01, 2024
Objective Data
-
Labs:
Laboratory Results
04/01/24
07:02
WBC 8.4
Hgb 13.2
Hct 38.4 L
Plt Count 223
Sodium 134 L
Potassium 4.6
Chloride 103
Carbon Dioxide 21 L
BUN 12
Creatinine 0.9
Glucose 98
Calcium 9.4
Vital Signs:
Vital Signs
Temp Pulse Resp BP Pulse Ox
37.0 C 70 28 125/65 94
04/01/24 06:59 04/01/24 07:59 04/01/24 06:59 04/01/24 07:59 04/01/24 06:59
I&O
03/31/24 04/01/24 04/02/24
06:59 06:59 06:59
Output Total 675 / 675
Balance -675 / -675
Review of Systems
-
All other systems: Reviewed and negative
Physical Exam
-
General: Well Developed, Well Nourished, No Apparent Distress and Comfortable
HEENT: Normocephalic, Atraumatic and Moist Mucous Membranes
Respiratory: Clear to Auscultation and Non Labored Respirations; Negative Accessory Resp Muscle Use
Cardiac: Regular Rhythm and S1/S2
GI: Soft, Nontender, Nondistended and No Hepatosplenomegaly
Genito-urinary: Pulido
Musculoskeletal: No Clubbing, No Cyanosis and No Edema
Skin: Warm and Dry
Neuro: Awake and Alert
Psych: Calm and Intact Judgement/Insight
Data Reviewed
-
CT Scan: Report Reviewed by me
Labs: Labs Reviewed by me
--- NOTE | 2024-04-01 12:22 | CON.ID ---
Consultation
-
Date/Time Consultation Requested: March 31, 20247
Date/Time Consultation Performed: April 01, 2024 1230
Requesting Provider: Dr. Brandon Hamilton
Performing Provider: Dr. Zuleika Wayne
Reason for Consultation: UTI
Chief Complaint / Past History
Chief Complaint
Blood in urine
History of Present Illness
83-year-old male with history of CVA, BPH who has been having issues with urinary retention since end of February 2024 requiring Pulido placement at the urologist office. He was also placed on a course of cefdinir. The Pulido was removed March 21, but
the patient developed urinary retention again without urine output for 1 day and therefore he presented to the ER on March 28. Pulido catheter was placed with 1000 cc of urine output. Urine analysis and urine culture were sent; UA negative, urine
culture positive for Pseudomonas. However while at home patient developed gross hematuria obstructing the Pulido. He came back to the ER on March 31. The Pulido was flushed with resolution of the hematuria. He did spiked fever up to 101.1 last
night. UA positive nitrite, leukocytosis, > 100 red blood cells, unable to count white blood cells due to RBCs. Urine culture again positive for Pseudomonas. He is currently on cefepime. Hematuria has resolved. He feels improved today.
Past History
Additional Past Medical History:
CVA, residual dysarthria
BPH
paroxysmal Afib
Hypertension
dyslipidemia
Allergy History:
No Known Allergies Allergy (Verified 03/31/24 15:51)
Medications Reviewed: Yes
Current Antibiotics:
Cefepime 1g IV q8
Social History
Tobacco: Former Smoker
Alcohol: None
Drug: None
Personal:
Living: With Family
Family History
Family History: Not Pertinent
Review of Systems
Review of Systems
General: Negative Chills or Change in Appetite
HEENT: Negative Sinus Problems, Headache or Pharyngitis
Cardiovascular: Negative Chest Pain
Respiratory: Negative Dyspnea or Cough
Gasteroenterology: Other (no diarrhea); Negative Nausea or Vomiting
Genital / Urological: Negative Dysuria
Endocrine: Negative Weakness
Skin / Hair / Nails: Negative Rash
Neurological: Negative Headache or Dizziness
All systems: All other systems were reviewed and were negative
Vital Signs
Temp Pulse Resp BP Pulse Ox
98.6 F 70 28 125/65 94
04/01/24 06:59 04/01/24 07:59 04/01/24 06:59 04/01/24 07:59 04/01/24 06:59
Selected Entries
04/01/24
03:45
Temp max 101.1 F H
Physical Exam
Physical Exam
Constitutional: No Acute Distress and Comfortable
Cardiovascular: Regular Rate and S1/S2
Pulmonary: Clear
Gastrointestinal: Soft, Non Tender, Non Distended and Normal Bowel Sounds
Genito-Urinary: Pulido and Clear Urine; Negative CVA Tenderness
Extremities: Negative Edema
Neurological: AO x 3
Lab / Diagnostic Study Results
04/01/24 07:02
04/01/24 07:02
Abs Immat Gran (auto) 0.0 10^3/uL (0-0.05) 03/31/24 16:09
Absolute Neuts (auto) 4.5 10^3/uL (1.4-6.5) 03/31/24 16:09
Absolute Lymphs (auto) 1.1 10^3/uL (1.2-3.4) L 03/31/24 16:09
Absolute Monos (auto) 0.9 10^3/uL (0.1-0.6) H 03/31/24 16:09
Absolute Basos (auto) 0.1 10^3/uL (0-0.2) 03/31/24 16:09
Immature Gran % 0.3 % (0-0.5) 03/31/24 16:09
Neutrophils % 65.8 % (42.2-75.2) 03/31/24 16:09
Lymphocytes % 15.6 % (20.5-51.1) L 03/31/24 16:09
Monocytes % 13.7 % (1.7-9.3) H 03/31/24 16:09
Eosinophils % 3.6 % (0-6) 03/31/24 16:09
Basophils % 1.0 % (0-2) 03/31/24 16:09
PT 14.9 Sec (11.4-14.6) H 03/31/24 16:09
INR 1.19 03/31/24 16:09
Microbiology Results
Micro:
03/31/24 16:09 Urine Culture - Final
Urine Pseudomonas aeruginosa
Assessment / Plan
# Pseudomonas CAUTI
# Urinary retentions failed voiding trial, pulido placed 03/28/24.
# Gross hematuria - resolved
# Fever
- Pseudomonas resistant to quinolone
-Recommend cefepime 2gIV q8h through 04/09/2024.
- Ordered midline.
-Home infusion sheet handed to case management Juma.
- Per Urology, maintain pulido, for outpt [facility] teaching.
# Additional PMH
CVA, residual dysarthria
BPH
paroxysmal Afib
Hypertension
dyslipidemia
[2024-04-01 12:42] VITALS: BP 104/70; PULSE 63
[2024-04-01 12:46] VITALS: BP 104/70; PULSE 63
--- NOTE | 2024-04-01 14:30 | CM ---
Patient seen at bedside with and son/daughter in law. Patient is for IV antibiotics per Dr. Wayne and CM reviewed [facility] for providers with family. CM sent clinical information to [facility] and will send referral for [facility] for teaching and
nursing. CM reviewed options for home care with patient and he chose [facility]. CM reviewed IMM and form signed and placed on chart. Patient very anxious for discharge. CM reviewed process with family and they are in agreement with plan.
Plan; home with [facility] and [facility]
[2024-04-01 15:14] VITALS: BP 102/67
[2024-04-01] MEDS: ELIQUIS 5 MG PO (20:44)
[2024-04-01] MEDS: MAXIPIME 2000 MG IV (21:42)
[2024-04-01 23:45] VITALS: BP 113/82
[2024-04-02] MEDS: MAXIPIME 2000 MG IV (05:15)
[2024-04-02] MEDS: STERILE WATER FOR INJECTION 10 ML IV ×3 (05:15→21:17)
[2024-04-02 06:00] VITALS: BMI 29.5
[2024-04-02 06:19] LABS: Hemoglobin 12.2 g/dL (13.0-18.0); Mean Corp Hgb Conc. 34.9 g/dL (33.0-37.0); Mean Corpuscular Hgb 28.9 pg (27.0-31.0); Mean Corpuscular Volume 82.9 fL (80.0-94.0); Mean Platelet Volume 10.9 fL (7.4-10.4); Platelet Count 188 10^3/uL (130-400); Red Blood Cell Count 4.22 10^6/uL (4.70-6.10); White Blood Cell Count 6.5 10^3/uL (4.8-10.8)
--- NOTE | 2024-04-02 06:21 | PTCARENOTE ---
pt with new generalized rash (back, abdomen, inner thighs, bilateral arms)- pink, macular. Pt states no itchiness or soreness. STORE MANAGEMENT TRAINEE made aware. plan of care ongoing.
[2024-04-02 06:48] LABS: Blood Urea Nitrogen 14 mg/dl (9-20); Carbon Dioxide 19 mmol/L (22-30); Chloride 108 mmol/L (98-107); Estimated Creatinine Clearance 72 ml/min; Glucose 84 mg/dl (70-99); Magnesium 1.6 mg/dl (1.6-2.3); Potassium 3.7 mmol/L (3.5-5.1); Sodium 136 mmol/L (135-145); eGFR > 60.00
--- NOTE | 2024-04-02 06:48 | W.PN.UPDATE ---
Update Note
Progress Note Update
RN reports new macular rash on arms, back ,abd, thighs, Not itchy or painful. Pt has been receiving cefepime for pseudomonas uti. Has had many doses. Denies previus allergy. Will give dose of pepcid and claritan. Will have ID eval possible drug
reaction.
--- NOTE | 2024-04-02 07:27 | W.PN.URO.CBU ---
Today's Communication / Plan
-
- CT Urogram reviewed - massive 238 cc prostate gland
- IV Cefepime 2g q8h through 04/09 per ID
- Maintain Costa catheter on discharge
- Plan for outpatient TOV in 1 week w/ [facility] teaching (patient has prior experience)
- Cystoscopy tentatively scheduled for 04/22/24
D/w patient.
D/w Hospitalist.
Assessment / Plan
-
Acute urinary retention
Large volume BPH (238 cc gland)
Hematuria secondary to catheter trauma, cUTI, Eliquis anticoagulation
Pseudomonas cUTI
03/14: ER visit for AUR - catheter placed w/ clear yellow UOP.
03/17:: Urology office visit - finasteride continued, alfuzosin started, Eliquis held temporarily for hematuria.
03/24: TOV w/ blood-tinged UOP and PVR 134 cc. Bactrim DS BID x5 days started.
03/28: ER visit for recurrent AUR - catheter inserted w/ clear UOP, UCx sent.
03/31: Patient asked to return to ER for admission for treatment w/ IV abx (03/28 UCx => Pseudomonas w/ FQ resistance)
H/H stable
Cr normal
UCx Pseudomonas
Diagnosis
-
Date of Service: April 02, 2024
-
Diagnosis:
Acute urinary retention
Large volume BPH (238 cc gland)
Hematuria secondary to catheter trauma, cUTI, Eliquis anticoagulation
Pseudomonas cUTI
Subjective
-
In good spirits - eager to go home.
Urine clear w/o hematuria or clots.
Denies suprapubic/penile pain.
Objective
-
Vital Signs
Temp Pulse Resp BP Pulse Ox
98.5 F 80 19 113/82 93
04/01/24 23:45 04/01/24 23:45 04/01/24 23:45 04/01/24 23:45 04/01/24 15:14
Intake and Output
04/01/24 04/02/24 04/03/24
06:59 06:59 06:59
Intake Total 2019
Output Total 675 / 675 1275 / 1275
Balance -675 / -675 745 / 745
Intake:
Oral fluids 540 / 540
IV fluids (Total) 1480 / 1480
Output:
Urine, Costa 675 / 675 1275 / 1275
Other:
Number of approximated LARGE 4
amounts of urine
Laboratory Results
04/02/24 05:31
04/02/24 05:31
Physical Exam
-
General - well developed, well nourished, no acute distress
Abdomen - soft, non-tender, non-distended
Genitalia - normal, Costa catheter in place w/ clear UOP
Skin - warm & dry with no rash
Neuro - AOx3, no motor deficits
Extremities - no clubbing, no cyanosis, no edema
Care Review
Data Reviewed
Discussed with: Hospitalist
CT Scan: Report Pers Reviewed and Image Pers Reviewed
Total Time Spent with Patient (in minutes): 35
[2024-04-02 07:40] VITALS: BP 104/75
[2024-04-02] MEDS: CLARITIN 10 MG PO (07:42)
[2024-04-02] MEDS: PEPCID 20 MG PO (07:42)
[2024-04-02] MEDS: TOPROL XL PO (07:42)
[2024-04-02] MEDS: PROSCAR 5 MG PO (07:42)
[2024-04-02] MEDS: ELIQUIS 5 MG PO ×2 (07:42→19:35)
--- NOTE | 2024-04-02 11:13 | W.PN.ID1 ---
Date of Service
Date of Service: April 02, 2024
Today's Communication
Continue abx.
Assessment / Plan
# Pseudomonas CAUTI
# Urinary retention; failed voiding trial, pulido placed 03/28/24.
# Gross hematuria - resolved
# Fever
- Pseudomonas resistant to quinolone
- Continue cefepime 2gIV q8h through 04/09/2024.
- Midline placed.
- Home infusion sheet handed to case management Juma.
- Per Urology, maintain pulido, for outpt [facility] teaching.
# Additional PMH
CVA, residual dysarthria
BPH
paroxysmal Afib
Hypertension
dyslipidemia
Chief Complaint
-: UTI
Subjective / Review of Systems
Review of Systems: No Fever and No Chills
Vital Signs / Physical Exam
Vital Signs
Vital Signs
Temp Pulse Resp BP Pulse Ox
98.2 F 71 18 104/75 96
04/02/24 07:40 04/02/24 07:42 04/02/24 07:40 04/02/24 07:42 04/02/24 07:40
Physical Exam
Constitutional: No Acute Distress, Comfortable and Non-toxic
Eyes: Sclera Anicteric
Pulmonary: Non Labored
Gastrointestinal: Non Distended
Genito-Urinary: Pulido and Clear Urine; Negative Hematuria
Extremities: Negative Edema or Erythema
Neurological: Awake, Alert and Oriented
Objective Data
Lab Data
Lab Results
04/02/24 05:31
04/02/24 05:31
PT 14.9 Sec (11.4-14.6) H 03/31/24 16:09
INR 1.19 03/31/24 16:09
APTT 31.4 Sec (23.4-35.0) 03/31/24 16:09
Estimated Creat Clear 72 ml/min 04/02/24 05:31
Total Bilirubin 0.9 mg/dl (0.2-1.3) 03/31/24 16:09
AST 27 U/L (17-59) 03/31/24 16:09
ALT 18 U/L (0-50) 03/31/24 16:09
Alkaline Phosphatase 68 U/L (38-126) 03/31/24 16:09
Most recent labs reviewed.
Micro Results:
03/31/24 16:09 Urine Culture - Final
Urine Pseudomonas aeruginosa
--- NOTE | 2024-04-02 11:16 | W.PN.HOSP.TC ---
Today's Communication/Plan
-
see A/P
Assessment / Plan
Assessment / Plan
HPI: 83 yo F PMH Prx AF, CVA, BPH, recent placement of chronic indwelling Pulido Catheter on 03/28/24 for acute urinary retention; p/w outpatient urine culture positive for Pseudomonas.
He has also noted hematuria in his Pulido bag that started a few days ago.
His outpatient uro is Dr. Luna. He was DC'ed on Cefdinir 300mg BID for 5 days.
A/P:
# Complicated UTI/ CAUTI with Pseudomonas resistant to Cipro/Levaquin
# Acute onset Hematuria, resolved
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
Pulido was changed in ED, and hematuria has resolved
with resolution of hematuria, resume AMMONIA BOX TENDER Eliquis
Abx cefepime per ID.
cont Finasteride
CT urogram unrevealing: Significantly enlarged prostate gland extending into the base of the bladder, compatible with hyperplasia.
ID consult
Uro on board
# Generalized skin rash around chest/abdomen following IV Abx
Cont Pepcid 20 mg BID. Start empiric prednisone 40 mg daily x5 days
ID to address if need to change current Abx Cefepime
Wound care CS
# paroxysmal A fib
with resolution of hematuria, resume AMMONIA BOX TENDER Eliquis
Cont Metoprolol
# Essential hypertension
c/w metoprolol.
# Hyperlipidemia
continue Crestor.
# Obesity due to excess calories
DVT Px: resume AMMONIA BOX TENDER Eliquis
Full code
DW RN
Anticipated Discharge: 24 - 48 hours
Subjective/Interval History
-
Date of Service: April 02, 2024
Objective Data
-
Labs:
Laboratory Results
04/02/24
05:31
WBC 6.5
Hgb 12.2 L
Hct 35.0 L
Plt Count 188
Sodium 136
Potassium 3.7
Chloride 108 H
Carbon Dioxide 19 L
BUN 14
Creatinine 0.8
Glucose 84
Calcium 8.0 L
Vital Signs:
Vital Signs
Temp Pulse Resp BP Pulse Ox
36.8 C 71 18 104/75 96
04/02/24 07:40 04/02/24 07:42 04/02/24 07:40 04/02/24 07:42 04/02/24 07:40
I&O
04/01/24 04/02/24 04/03/24
06:59 06:59 06:59
Intake Total 2019
Output Total 675 / 675 1275 / 1275
Balance -675 / -675 745 / 745
Review of Systems
-
Skin: Reports Rash (generalized erythematous rash around chest/abdomen )
Physical Exam
-
General: Well Developed, Well Nourished, No Apparent Distress and Comfortable
HEENT: Normocephalic, Atraumatic and Moist Mucous Membranes
Respiratory: Clear to Auscultation and Non Labored Respirations; Negative Accessory Resp Muscle Use
Cardiac: Regular Rhythm and S1/S2
GI: Soft, Nontender, Nondistended and No Hepatosplenomegaly
Genito-urinary: Pulido
Musculoskeletal: No Clubbing and No Cyanosis
Skin: Warm, Dry and Rash (chest /abdomen )
Neuro: Awake and Alert
Psych: Calm and Intact Judgement/Insight
Data Reviewed
-
CT Scan: Report Reviewed by me
Labs: Labs Reviewed by me
[2024-04-02] MEDS: MAGNESIUM SULFATE 50 IV (12:17)
[2024-04-02] MEDS: NSS (PRESERVATIVE FREE) IV (12:41)
[2024-04-02] MEDS: DELTASONE 40 MG PO (12:42)
[2024-04-02] MEDS: PEPCID IV (12:42)
--- NOTE | 2024-04-02 12:48 | CM ---
Addendum entered by Tiffanie Dewey 04/02/24 14:52:
[facility] advised Pt's copay for IVABX will be $192.45/week. I advised Mr. Bingham of the copay and he is able to afford this. Anticipated end of ABX is 04/10/2024.
Original Note:
CM notified by Dr. Jarvis of need to change ABX due to a rash from cefepime. Updated Rx received for Meropenem 500mg IV q8; Rx faxed to [facility]. Await information about copay from [facility]. Pt chose [facility] for teaching and nursing services.
PLAN: CM to follow for discharge to home with [facility] for infusion and [facility] for nursing services.
--- NOTE | 2024-04-02 13:59 | WOUNDNOTE ---
RIGHT UPPER ARM
--- NOTE | 2024-04-02 14:00 | WOUNDNOTE ---
[facility] RN note: Patient admitted with hematuria
See H&P for complete history.
PMH: Stroke, HTN, chronic pulido, BPH, skin cancer
Wound Location and type/assessment: Patient developed generalized rash of abdomen, arms and legs. Per chart review, rash caused by IV antibiotics. Change of antibiotics has be initiated and prednisone, has been ordered. Rash is flat and patient
denied pain or itching. Sacrum and heels intact.
Appetite: Good
Pressure redistribution devices in place: [employer]
Plan: TT Dr. Prince that no wound order warranted at this time, as patient denies itching and prednisone has been ordered. Will continue to follow as needed. RN Zuleika updated.
[2024-04-02] MEDS: MERREM 500 MG IV ×2 (14:45→21:17)
[2024-04-02 15:04] VITALS: BP 92/54
[2024-04-02] MEDS: PEPCID 20 MG IV (19:34)
[2024-04-02] MEDS: NSS (PRESERVATIVE FREE) 8 ML IV (19:34)
[2024-04-02 23:47] VITALS: BP 103/78
[2024-04-03] MEDS: MERREM 500 MG IV ×2 (05:16→14:08)
[2024-04-03] MEDS: STERILE WATER FOR INJECTION 10 ML IV ×2 (05:17→14:08)
[2024-04-03 06:00] VITALS: BMI 29.4
[2024-04-03 07:20] VITALS: BP 117/81
--- NOTE | 2024-04-03 09:04 | W.PN.UPDATE ---
Update Note
Progress Note Update
Acute urinary retention
Large volume BPH (238 cc gland)
Hematuria secondary to catheter trauma, cUTI, Eliquis anticoagulation
Pseudomonas cUTI
- Continue IV Cefepime 2g q8h through 04/09 per ID
- Maintain Costa catheter on discharge
- Will plan for outpatient TOV in 1 week w/ [facility] teaching (patient has prior experience doing so)
- Cystoscopy tentatively scheduled for 04/22/24
D/w patient.
[2024-04-03] MEDS: TOPROL XL 25 MG PO (09:08)
[2024-04-03] MEDS: ELIQUIS 5 MG PO (09:09)
[2024-04-03] MEDS: DELTASONE 40 MG PO (09:09)
[2024-04-03] MEDS: PROSCAR 5 MG PO (09:09)
[2024-04-03] MEDS: PEPCID 20 MG IV (09:10)
[2024-04-03 09:12] LABS: Hematocrit 40.9 % (39.0-52.0); Hemoglobin 14.2 g/dL (13.0-18.0); Mean Corp Hgb Conc. 34.7 g/dL (33.0-37.0); Mean Corpuscular Hgb 28.9 pg (27.0-31.0); Mean Corpuscular Volume 83.1 fL (80.0-94.0); Mean Platelet Volume 10.9 fL (7.4-10.4); Platelet Count 238 10^3/uL (130-400); Red Blood Cell Count 4.92 10^6/uL (4.70-6.10); Red Cell Dist. Width 13.8 % (11.5-14.5); White Blood Cell Count 7.9 10^3/uL (4.8-10.8)
[2024-04-03] MEDS: NSS (PRESERVATIVE FREE) 8 ML IV (09:13)
--- NOTE | 2024-04-03 10:17 | W.PN.HOSP.TC ---
Addendum entered and electronically signed by Filomena Prince MD 04/03/24 14:34:
total DC time 38 min
Original Note:
Today's Communication/Plan
-
see A/P
Assessment / Plan
Assessment / Plan
HPI: 83 yo F PMH Prx AF, CVA, BPH, recent placement of chronic indwelling Pulido Catheter on 03/28/24 for acute urinary retention; p/w outpatient urine culture positive for Pseudomonas.
He has also noted hematuria in his Pulido bag that started a few days ago.
His outpatient uro is Dr. Luna. He was DC'ed on Cefdinir 300mg BID for 5 days.
A/P:
# Complicated UTI/ CAUTI with Pseudomonas resistant to Cipro/Levaquin
# Acute onset Hematuria, resolved
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
Pulido was changed in ED, and hematuria has resolved
with resolution of hematuria, resumed PATIENT SVCS MGR Eliquis
Abx cefepime -> Merrem due to allergy to cefepime
cont Finasteride
CT urogram unrevealing: Significantly enlarged prostate gland extending into the base of the bladder, compatible with hyperplasia.
ID consult
Uro on board
# Generalized skin rash around chest/abdomen following IV Abx Cefepime
Cont Pepcid 20 mg BID. Started empiric prednisone 40 mg daily x5 days
Abx cefepime -> Merrem due to allergy to cefepime
Wound care on board
# paroxysmal A fib
with resolution of hematuria, resume PATIENT SVCS MGR Eliquis
Cont Metoprolol
# Essential hypertension
c/w metoprolol.
# Hyperlipidemia
continue Crestor.
# Obesity due to excess calories
DVT Px: resume PATIENT SVCS MGR Eliquis
Full code
DW CM
DW at bedside
Anticipated Discharge: Today
Subjective/Interval History
-
Date of Service: April 03, 2024
Objective Data
-
Labs:
Laboratory Results
04/03/24
08:40
WBC 7.9
Hgb 14.2
Hct 40.9
Plt Count 238 D
Sodium Pending
Potassium Pending
Chloride Pending
Carbon Dioxide Pending
BUN Pending
Creatinine Pending
Glucose Pending
Calcium Pending
Vital Signs:
Vital Signs
Temp Pulse Resp BP Pulse Ox
36.8 C 74 20 117/89 98
04/03/24 07:20 04/03/24 09:08 04/03/24 07:20 04/03/24 09:08 04/03/24 07:20
I&O
04/02/24 04/03/24 04/04/24
06:59 06:59 06:59
Intake Total 2019 480 / 480 240 / 240
Output Total 1275 / 1275 2650 / 2650
Balance 745 / 745 -2170 / -2170 240 / 240
Review of Systems
-
All other systems: Reviewed and negative
Physical Exam
-
General: Well Developed, Well Nourished, No Apparent Distress and Comfortable
HEENT: Normocephalic, Atraumatic and Moist Mucous Membranes
Respiratory: Clear to Auscultation and Non Labored Respirations; Negative Accessory Resp Muscle Use
Cardiac: Regular Rhythm and S1/S2
GI: Soft, Nontender, Nondistended and No Hepatosplenomegaly
Genito-urinary: Pulido
Musculoskeletal: No Clubbing and No Cyanosis
Skin: Warm, Dry and Rash (chest /abdomen, improved )
Neuro: Awake and Alert
Psych: Calm and Intact Judgement/Insight
Data Reviewed
-
CT Scan: Report Reviewed by me
Labs: Labs Reviewed by me
[2024-04-03 10:34] LABS: Blood Urea Nitrogen 19 mg/dl (9-20); Calcium 10.2 mg/dl (8.4-10.2); Carbon Dioxide 16 mmol/L (22-30); Chloride 108 mmol/L (98-107); Estimated Creatinine Clearance 73 ml/min; Glucose 97 mg/dl (70-99); Magnesium 2.6 mg/dl (1.6-2.3); Potassium 4.8 mmol/L (3.5-5.1); Sodium 138 mmol/L (135-145); eGFR > 60.00
--- NOTE | 2024-04-03 11:41 | CM ---
Addendum entered by Tiffanie Dewey 04/03/24 12:32:
[facility] teaching done at bedside and patient is independent with the IV administration. Leidy referral sent to the [facility] area office today. [facility] anticipates start of care tomorrow, 04/04/2024.
Plan: Discharge to home today with IV infusion services with [facility] and [facility].
Original Note:
Austin is being discharged to home with [facility] for IV ABX and [facility] for RN. Call placed to [facility] and records faxed with midline information. Per Margie, delivery for 10pm dose will be delivered this evening; Pt will need to have his
2pm dose here prior to discharge.
Call placed to [facility] to confirm start of care tonight; voicemail left requesting return call for confirmation.
I met with Austin to make him aware of this; he is anxious to return home, but understands that he needs to have his medication this afternoon before leaving.
Plan: Await confirmation from [facility] for start of care tonight for 10pm IV ABX.
--- NOTE | 2024-04-03 14:07 | W.PN.ID1 ---
Date of Service
Date of Service: April 03, 2024
Today's Communication
Continue current course of meropenem.
Assessment / Plan
# Pseudomonas CAUTI
# Urinary retention; failed voiding trial, pulido placed 03/28/24.
# Gross hematuria - resolved
# Fever
# Rash
- appears to have resolved following discontinuation of cefepime.
- Patient to be discharged on a course of meropenem. Infusion sheet given previously to case management.
- Pseudomonas resistant to quinolone
- Midline placed.
- Per Urology, maintain pulido, for outpt [facility] teaching.
# Additional PMH
CVA, residual dysarthria
BPH
paroxysmal Afib
Hypertension
dyslipidemia
Chief Complaint
-: UTI
Subjective / Review of Systems
Patient seen and examined. Overall feels well. Denies specific complaints.
Review of Systems: No Fever and No Chills
Vital Signs / Physical Exam
Vital Signs
Vital Signs
Temp Pulse Resp BP Pulse Ox
98.2 F 74 20 117/89 98
04/03/24 07:20 04/03/24 09:08 04/03/24 07:20 04/03/24 09:08 04/03/24 07:20
Physical Exam
Constitutional: No Acute Distress, Comfortable and Non-toxic
Eyes: Sclera Anicteric
Pulmonary: Non Labored
Gastrointestinal: Non Distended
Skin: Rash (Fine, mildly erythematous macular rash noted yesterday on abdomen has resolved)
Neurological: AO x 3
Psychological: Calm
Objective Data
Lab Data
Lab Results
04/03/24 08:40
04/03/24 08:40
PT 14.9 Sec (11.4-14.6) H 03/31/24 16:09
INR 1.19 03/31/24 16:09
APTT 31.4 Sec (23.4-35.0) 03/31/24 16:09
Estimated Creat Clear 73 ml/min 04/03/24 08:40
Total Bilirubin 0.9 mg/dl (0.2-1.3) 03/31/24 16:09
AST 27 U/L (17-59) 03/31/24 16:09
ALT 18 U/L (0-50) 03/31/24 16:09
Alkaline Phosphatase 68 U/L (38-126) 03/31/24 16:09
Most recent labs reviewed.
Micro Results:
03/31/24 16:09 Urine Culture - Final
Urine Pseudomonas aeruginosa
--- NOTE | 2024-04-03 14:22 | W.DCSUMMARY ---
Discharge Summary
Discharge Data
Date of Admission: 03/31/24
Date of Discharge: 04/03/24
-
Pending Results: No
Hospital Course
Principal Diagnosis:
Complicated urinary tract infection (UTI)/ catheter associated urinary tract infection (CAUTI) with Pseudomonas resistant to Cipro/Levaquin
Resolved hematuria
Chronic Diagnoses:�
Benign prostate hypertrophy
Recent placement of chronic indwelling Costa Catheter on 03/28/24 for urinary retention
Paroxysmal atrial fibrillation
Essential hypertension
Hyperlipidemia
Obesity due to excess calories
Consultations:�
Urology
Infectious disease
Procedures:�
None
Clinical course:�
This is a 83-year-old male, with past medical history as stated above, who presented to the hospital due to outpatient urine culture growing Pseudomonas.
He also noted hematuria in his Costa bag.
Problem 1:
Complicated UTI/ CAUTI with Pseudomonas resistant to Cipro/Levaquin
This was associated with hematuria which has resolved.
His Costa was exchanged on admission in the emergency room.
His prior to admission Eliquis was resumed given his hematuria has resolved.
He initially received cefepime, which was later changed to Merrem due to allergy to cefepime (see below).
He can continue with Merrem via home infusion following discharge.
Of note, his CT urogram this admission was unrevealing: showed significantly enlarged prostate gland extending into the base of the bladder, compatible with hyperplasia.
Problem 2:
Generalized skin rash around chest/abdomen following IV antibiotic cefepime.
This was treated with Pepcid 20 mg twice daily and empiric prednisone 40 mg daily x5 days.
As for the rest of his medical problems, they were stable during his hospital stay.
Discharge Plan
-
Patient Disposition: Home with Home Care
Discharge Diagnosis/Procedures: Complicated urinary tract infection/catheter associated urinary tract infection with Pseudomonas resistant to Cipro/Levaquin; resolved hematuria; Generalized skin rash around chest/abdomen following IV Cefepime
Condition: Fair
Diet: As tolerated
Activity: As tolerated
Driving Restrictions: As prior to admission
Referrals:
Mark Moyer DO [Family Provider] - in less than 1 week
Leon Luna MD [Active] -
(Please call Dr. Luna's office to schedule a catheter removal appt in the AM and a bladder scan/self-cath teaching appt in PM (2 appts in same day) approximately 1 week from your discharge date.
Your catheter will be removed at this appointment to confirm you are emptying and voiding on your own. )
Additional Discharge Medication Instructions: Continue Merrem
Continue Pepcid for 1 week and Prednisone to 5 more days
Prescriptions:
New
prednisone 20 mg Tablet
40 mg PO DAILY 5 Days Qty: 10 0RF
meropenem 500 mg Recon Soln
500 mg IV Q8H Qty: 10 0RF
famotidine [Pepcid] 20 mg tablet
20 mg PO BID 7 Days Qty: 14 0RF
Continued
metoprolol succinate 25 mg tablet extended release 24 hr
25 mg PO DAILY Qty: 30 0RF
rosuvastatin 40 mg Tablet
20 mg PO DAILY
Eliquis 5 mg Tablet
5 mg PO BID
finasteride 5 MG tablet
5 mg PO DAILY Qty: 0 0RF
vitamin A-vitamin C-vit E-min Tablet
1 tab PO DAILY
alfuzosin 10 mg tablet extended release 24 hr
10 mg PO QPM
Discharge Orders:
Discharge Patient (As Directed); Ordered 04/03/24
Ordered By: Filomena Prince
Discharge Date and Time
Print Language: GRENADIAN
[2024-04-03 14:48] VITALS: BP 124/74
== END 2024-04-03 15:52 | disposition home health service (06) | DRG 699 ==
LOC: 4 EAST ACU 20:53
PROVIDERS: Emergency Medicine; ADMITTING PHYSICIAN Internal Medicine; ATTENDING PHYSICIAN Internal Medicine; CONSULT PHYSICIAN Surgery; EMERGENCY PHYSICIAN Emergency Medicine; FAMILY PHYSICIAN Family Medicine; OTHER PHYSICIAN Internal Medicine Infectious Disease
DX: T83.511A Infection and inflammatory reaction due to indwelling urethral catheter, initial encounter (principal); D68.32 Hemorrhagic disorder due to extrinsic circulating anticoagulants; Z16.23 Resistance to quinolones and fluoroquinolones; N39.0 Urinary tract infection, site not specified; B96.5 Pseudomonas (aeruginosa) (mallei) (pseudomallei) as the cause of diseases classified elsewhere; N40.1 Benign prostatic hyperplasia with lower urinary tract symptoms; R33.8 Other retention of urine; R31.0 Gross hematuria; L27.0 Generalized skin eruption due to drugs and medicaments taken internally; T36.1X5A Adverse effect of cephalosporins and other beta-lactam antibiotics, initial encounter; I10 Essential (primary) hypertension; E78.00 Pure hypercholesterolemia, unspecified; I48.0 Paroxysmal atrial fibrillation; E66.09 Other obesity due to excess calories; I69.322 Dysarthria following cerebral infarction; T45.515A Adverse effect of anticoagulants, initial encounter; Z68.30 Body mass index [BMI] 30.0-30.9, adult; Z87.891 Personal history of nicotine dependence; Z79.01 Long term (current) use of anticoagulants
CPT/HCPCS: 74178; 80048; 80053; 81003; 81015; 83735; 85025; 85027; 85610; 85730; 87077; 87086; 87088; 87186; 96365; 96375; 97161; 97166; 99285

== ENCOUNTER 2024-05-01 05:54 | Emergency (ER) | payer MEDICARE, OTHER, SELFPAY ==
[2024-05-01 05:58] VITALS: BP 170/100
--- NOTE | 2024-05-01 07:23 | ED.GENMED ---
History of Present Illness
General
Chief Complaint: Male Genito-Urinary Symptoms
Time Seen by Provider: 05/01/24 06:12
History of Present Illness
History of Present Illness:
Patient in urinary retention. Catheter was removed yesterday. History of UTI
Past History
Past History
ED Past Medical History: Cancer (Skin), CVA (June 2021 acute ischemic left temporoparietal stroke), HTN, Hypercholesterolemia and Other (dizziness, aphasia, orthostatic hypotension, Gout)
ED Past Surgical History: Cardiac (Link recorder implanted) and Tonsilectomy
Social History
Tobacco: Former smoker
Alcohol: None
Drug: None
Personal:
Living: with family
Employment: Retired
Family History
Family History: Other (reviewed and non-contributory)
Phy Exam
Physical Exam
Physical Exam:
GENERAL: Alert and oriented in no apparent distress
EYE: Orbits normal.
NECK: Supple
CARDIAC: Regular rate and rhythm without any obvious murmurs.
LUNGS: Clear breath sounds,normal
ABDOMEN: Soft, suprapubic fullness. No rebound or guarding no mass or hernia
NEUROLOGICAL: Alert and oriented , grossly non-focal
SKIN: Warm and dry, no rash or lesion, no discoloration, skin intact.
MUSCULOSKELETAL: No edema,no deformity.Good color
PSYCH: Normal and appropriate interaction.
Course
Vital Signs
Initial and Last Documented VS:
Initial Vital Signs
Temp Pulse Resp BP Pulse Ox
98.3 F 93 20 170/100 95
05/01/24 05:58 05/01/24 05:58 05/01/24 05:58 05/01/24 05:58 05/01/24 05:58
Last Documented Vital Signs
Temp Pulse Resp BP Pulse Ox
98.3 F 93 20 170/100 95
05/01/24 05:58 05/01/24 05:58 05/01/24 05:58 05/01/24 05:58 05/01/24 05:58
*Pulse Oximetry
Patient hypoxic: no
*Critical Care Note
Total Time (30-74mins, 75-104mins- exclusive of procedures): Not Applicable
Data Reviewed
Review of Other/Old Records Reveals: Labs and Records
Update Note
Update Note:
Discussed with urology. No infectious symptoms. No indication for urine culture. Discharged to follow-up
ED Attending Note
-
Portions of this chart may have been created with voice recognition software.� Occasional wrong word or��sound alike� substitutions may have occurred due to the inherent limitations of voice recognition software.
Discharge Plan
Departure
Patient Disposition: Home (Routine Discharge)
Date of Disposition: 05/01/24
Time of Disposition: 07:23
Patient with high blood pressure during this ER visit?: Yes
Discharge Problem:
Acute urinary retention
Instructions: How to Care for Your Costa Catheter, Male, Urinary Retention (DC), BLOOD PRESSURE
Prescriptions:
No Action
metoprolol succinate 25 mg tablet extended release 24 hr
25 mg PO DAILY Qty: 30 0RF
rosuvastatin 40 mg Tablet
20 mg PO DAILY
Eliquis 5 mg Tablet
5 mg PO BID
finasteride 5 MG tablet
5 mg PO DAILY Qty: 0 0RF
vitamin A-vitamin C-vit E-min Tablet
1 tab PO DAILY
alfuzosin 10 mg tablet extended release 24 hr
10 mg PO QPM
prednisone 20 mg Tablet
40 mg PO DAILY 5 Days Qty: 10 0RF
meropenem 500 mg Recon Soln
500 mg IV Q8H Qty: 10 0RF
famotidine [Pepcid] 20 mg tablet
20 mg PO BID 7 Days Qty: 14 0RF
Activity Restrictions/Additional Instructions:
Follow-up closely with urology
Interventions
Interventions:
*Risk Screen - Suicide Last Done: 05/01/24 06:35
*Neglect/Abuse Screening Last Done: 05/01/24 06:35
ED- Fall Risk Assessment Last Done: 05/01/24 06:35
*ED COVID-19 Vaccine History Last Done: 05/01/24 06:35
ED-Male Genitourinary Assessment Last Done: 05/01/24 06:35
Discharge Date and Time
Print Language: VIETNAMESE
[2024-05-01 08:19] VITALS: BP 115/84
== END 2024-05-01 08:25 | disposition home or self-care (01) ==
LOC: EMR 05:54
PROVIDERS: EMERGENCY PHYSICIAN Emergency Medicine; FAMILY PHYSICIAN Family Medicine
DX: R33.9 Retention of urine, unspecified (principal); I10 Essential (primary) hypertension; E78.00 Pure hypercholesterolemia, unspecified; Z85.828 Personal history of other malignant neoplasm of skin; Z86.73 Personal history of transient ischemic attack (TIA), and cerebral infarction without residual deficits; Z87.440 Personal history of urinary (tract) infections; Z87.891 Personal history of nicotine dependence
CPT/HCPCS: 99282

== ENCOUNTER 2024-05-14 06:26 | Day surgery (SDC) | payer MEDICARE, OTHER, SELFPAY ==
--- NOTE | 2024-05-07 15:24 | PTCARENOTE ---
Patients 03/11 ECG abnormal- reviewed by Dr. Santamaria- no additional interventions required
[2024-05-14] VITALS (25 sets, daily range): BP systolic 58–132; BP diastolic 47–96; BMI 29.1; BMI 30.8
[2024-05-14] MEDS: NORMOSOL-R/PLASMALYTE-A 1000 IV ×2 (10:45→16:10)
[2024-05-14] MEDS: TYLENOL 1000 MG PO (11:13)
[2024-05-14] MEDS: ROCEPHIN 2000 MG IV (16:01)
[2024-05-14] MEDS: STERILE WATER FOR INJECTION 20 ML IV (16:02)
--- NOTE | 2024-05-14 16:21 | PHA.KIN.INIT ---
Assessment / Plan
- Assessment
Renal Function: Appears similar to baseline
Has Patient Previously Received this Agent: Previous Regimen was (03/31/24 GENTAMICIN 170MG IV X 1)
- Plan
GENTAMICIN 60MG IV Q12H. PREDICTED PEAK = 3.3; PREDICTED TROUGH = 0.22
Initial Pharmacokinetics Note
- -
Patient Age: 83
Patient Sex: Male
Antibiotic: Gentamicin
Antibiotic Day #: 1
Indication: Genito-Urinary Tract
Requesting Provider: Esteban RODRIGUEZ
Height / Weight:
Height 5 ft 6 in
Actual Weight 81.647 kg
- Vital Signs / Lab results
Temp Pulse Resp BP Pulse Ox
97.1 F 65 22 113/70 97
05/14/24 15:24 05/14/24 16:15 05/14/24 16:15 05/14/24 16:15 05/14/24 15:31
Maximum Temperature:
Historical Micro:
Concomitant Antimicrobials:
[2024-05-14] MEDS: COLACE 100 MG PO (17:41)
[2024-05-14] MEDS: TYLENOL 650 MG PO (17:41)
[2024-05-14] MEDS: NSS 250 IV (22:30)
[2024-05-14 22:33] LABS: Hematocrit 34.9 % (39.0-52.0); Hemoglobin 12.3 g/dL (13.0-18.0)
--- NOTE | 2024-05-14 22:33 | PTCARENOTE ---
Patient's Bp- BP- 86/60 (,manual) HR- 66. Asymptomatic. Artur ROCK made aware. New order for stat NS 250 bolus and stat H&H.
[2024-05-15] VITALS (7 sets, daily range): BP systolic 81–135; BP diastolic 58–71
[2024-05-15] MEDS: NORMOSOL-R/PLASMALYTE-A 1000 IV (01:18)
[2024-05-15] MEDS: GENTAMICIN 51.5 MG IV ×2 (01:18→14:02)
[2024-05-15 06:36] LABS: Hematocrit 34.2 % (39.0-52.0); Hemoglobin 11.4 g/dL (13.0-18.0); Mean Corp Hgb Conc. 33.3 g/dL (33.0-37.0); Mean Corpuscular Hgb 28.7 pg (27.0-31.0); Mean Corpuscular Volume 86.1 fL (80.0-94.0); Mean Platelet Volume 11.2 fL (7.4-10.4); Platelet Count 200 10^3/uL (130-400); Red Blood Cell Count 3.97 10^6/uL (4.70-6.10); Red Cell Dist. Width 14.2 % (11.5-14.5); White Blood Cell Count 11.2 10^3/uL (4.8-10.8)
[2024-05-15 07:08] LABS: Blood Urea Nitrogen 12 mg/dl (9-20); Calcium 8.8 mg/dl (8.4-10.2); Carbon Dioxide 26 mmol/L (22-30); Chloride 101 mmol/L (98-107); Estimated Creatinine Clearance 73 ml/min; Glucose 129 mg/dl (70-99); Potassium 4.5 mmol/L (3.5-5.1); Sodium 136 mmol/L (135-145); eGFR > 60.00
--- NOTE | 2024-05-15 07:12 | W.PN.URO.CBU ---
Today's Communication / Plan
-
will restart Eliquis then monitor hematuria
Assessment / Plan
-
stable
Diagnosis
-
Date of Service: May 15, 2024
-
Patient Diagnosis: s/p robotic partial prostatectomy
Post Op Day: 1
Subjective
-
expected belly aches
Objective
-
Vital Signs
Temp Pulse Resp BP Pulse Ox
98.6 F 68 14 103/64 98
05/15/24 04:09 05/15/24 04:09 05/15/24 04:09 05/15/24 04:09 05/15/24 04:09
Intake and Output
05/14/24 05/15/24 05/16/24
06:59 06:59 06:59
Intake Total 1700 / 1700
Output Total 3350 / 3350
Balance -1650 / -1650
Intake:
Oral fluids 330 / 330
IV fluids (Total) 1070 / 1070
Normosol 300 / 300
Rocephin 20 / 20
IV piggybacks 300 / 300
Output:
True Urine Output from [facility] 3350 / 3350
Laboratory Results
05/15/24 04:43
05/15/24 04:43
Physical Exam
-
General - well developed, well nourished, no acute distress
Chest - clear bilaterally
Abdomen - soft, non-tender, positive bowel sounds, no CVAT, no incisional pain or distention
Dressings - clean, dry, intact
[2024-05-15] MEDS: ELIQUIS 5 MG PO ×2 (08:09→19:56)
[2024-05-15] MEDS: CRESTOR 20 MG PO (08:09)
[2024-05-15] MEDS: COLACE 100 MG PO (08:09)
[2024-05-15] MEDS: PROSCAR 5 MG PO (08:09)
[2024-05-15] MEDS: TOPROL XL 25 MG PO (08:09)
[2024-05-15] MEDS: TYLENOL 650 MG PO ×3 (08:10→19:56)
[2024-05-15] MEDS: COLACE PO ×2 (11:00→16:39)
--- NOTE | 2024-05-15 11:19 | CM ---
Addendum entered by Dillan Jarrell 05/15/24 13:25:
Specific instructions per MD: 'Pulido care-hand irrigate with 250cc sterile fluid TID PRN. Pulido to D/C on 05/19/24'. RN aware and will do pulido care teaching. referral forwarded.
Original Note:
Initial assessment completed with patient who lives with his in a 2nd floor in-law suite in his son's home with son, D-I-L and 2 children, 9 and 12 y/o. There is an elevator to the 2nd floor and 1 step to the elevator. No DME or in-home
services. BELLOWS TESTER was independent and drove. No history of psychiatric hospitalizations. Pharmacy is [facility] in [place] and PCP is Dr. Moyer. Discharge Plan of Care: Home with [facility] for pulido care.
--- NOTE | 2024-05-15 11:51 | PHA.KIN.UP ---
Addendum entered and electronically signed by Adri Haines [facility] 05/15/24 14:56:
Consult completed with pharmacy billing adjudicator. Agree with assessment and plan.
Original Note:
Assessment / Plan
- Assessment
Renal Function: Stable
In the past 24 hrs, patient has been: Afebrile
- Plan: Continue Present Regimen
Continue: Gentamicin 60mg Q12H
No level ordered at this time: consider in the next few days
- Follow Up
Pharmacy will continue to follow.
FollowUp Pharmacokinetics Note
- -
Patient Age: 83
Patient Sex: Male
Antibiotic: Gentamicin
Antibiotic Day #: 2
Indication: Genito-Urinary Tract
Requesting Provider: Esteban RODRIGUEZ
Pertinent Antimicrobial Allergies:
NKDA
Height / Weight:
Height 5 ft 6 in
Actual Weight 86.4 kg
IBW in k.8
Adjusted BW in k.8
Pertinent Past Medical History: bmi ~31
- Vital Signs / Lab Results
Temp Pulse Resp BP Pulse Ox
98.5 F 74 15 106/67 98
05/15/24 11:14 05/15/24 11:14 05/15/24 11:14 05/15/24 11:14 05/15/24 11:14
Lab Results - Hematology
05/15/24
04:43
WBC 11.2 H
Lab Results - Chemistry
05/15/24
04:43
BUN 12
Creatinine 0.8
Estimated Creat Clear 73
Concomitant Antimicrobials: Ceftriaxone
--- NOTE | 2024-05-15 12:47 | VNURNOTE ---
Home Health Liaison met with patient and spouse at bedside to discuss [facility] nurse visits, schedule and homebound status. Patient is agreeable and understands that visits at home will be 2-3 x per week to assess and teach medical management, ashok
care. [facility] brochure provided with contact information. Patient is aware that [facility] will contact them for start of care in 1-2 days after discharge from .
[facility] Intake notified of referral.
--- NOTE | 2024-05-15 15:30 | PTCARENOTE ---
Pt noted to have a bp of 86/58 HR 68. MD Blanca made aware via T.T suggesting 'no intervention. He will stay overnight to see how hematuria responds to eliquis restart.' pt asymptomatic and has no concerns. care plan continues to be followed.
[2024-05-15] MEDS: STERILE WATER FOR INJECTION 20 ML IV (16:38)
[2024-05-15] MEDS: ROCEPHIN 2000 MG IV (16:39)
[2024-05-16] MEDS: GENTAMICIN 51.5 MG IV (03:00)
[2024-05-16 08:00] VITALS: BP 100/75
[2024-05-16] MEDS: PROSCAR 5 MG PO (08:10)
[2024-05-16] MEDS: CRESTOR 20 MG PO (08:10)
[2024-05-16] MEDS: ELIQUIS 5 MG PO (08:10)
[2024-05-16] MEDS: TOPROL XL 25 MG PO (08:11)
[2024-05-16] MEDS: COLACE 100 MG PO ×2 (08:11→13:30)
--- NOTE | 2024-05-16 11:33 | W.DS.TRANS ---
DC Summary - Quarter Inspector
-
Discharge Instructions:
Sleep Apnea Risk Intermediate
Discharge Diagnosis/Procedures Prostate Enlargement with Urinary Retention and
Pseudomonas UTI
Diet No restrictions
Activity No strenuous activity
Driving Restrictions No driving for 1 week
Bathing Restrictions OK to Shower
Other Services VN
Wound Care VN: home Costa care -- hand-irrigate with 250 ml
sterile fluid TID PRN obstruction
Instructions:
Stand-Alone Forms:
Changes to Home Medications: No
Discharge Medications:
DC Medications w/original date entered in [employer]
metoprolol succinate 25 mg tablet,extended release 24 hr 25 mg PO DAILY #30 tabs 06/25/23
apixaban 5 mg tablet (Eliquis) 5 mg PO BID Blood Clot Prevention/Tx 03/10/24
rosuvastatin 40 mg tablet 20 mg PO DAILY High Cholesterol 03/10/24
finasteride 5 mg tablet 5 mg PO DAILY Urinary issue #0 tabs 03/11/24
alfuzosin 10 mg tablet,extended release 24 hr 10 mg PO QPM Urinary Issue 03/31/24
cefdinir 300 mg capsule 300 mg PO BID 05/08/24
vitamin A-vitamin C-vit E-min tablet 1 tab PO DAILY 05/08/24
aspirin 81 mg tablet 81 mg PO DIRECTED 05/14/24
Home Medication Changes
Pending Results: No
--- NOTE | 2024-05-16 11:34 | W.PN.URO.CBU ---
Today's Communication / Plan
-
discharge
Assessment / Plan
-
stable
Diagnosis
-
Date of Service: May 16, 2024
-
Patient Diagnosis: s/p robotic partial prostatectomy
Post Op Day: 2
Subjective
-
less pain
more appetite
moving normally
Objective
-
Vital Signs
Temp Pulse Resp BP Pulse Ox
98.7 F 67 16 100/75 97
05/16/24 08:00 05/16/24 08:11 05/16/24 08:00 05/16/24 08:11 05/16/24 08:00
Intake and Output
05/15/24 05/16/24 05/17/24
06:59 06:59 06:59
Intake Total 1700 / 1700 2001.5 / 2001.5
Output Total 3350 / 3350 3100 / 3100 650 / 650
Balance -1650 / -1650 -1098.5 / -1098.5 -650 / -650
Intake:
Oral fluids 330 / 330 1880 / 1880
IV fluids (Total) 1070 / 1070 50 / 50
Normosol 300 / 300
Rocephin 20 / 20
IV piggybacks 300 / 300 71.5 / 71.5
Output:
True Urine Output from [facility] 3350 / 3350 3100 / 3100 650 / 650
Laboratory Results
05/15/24 04:43
05/15/24 04:43
Physical Exam
-
General - well developed, well nourished, no acute distress
Chest - clear bilaterally
Abdomen -no distention
Genitalia - Costa: hand-irrigated -- few old clots only; pale red urine
Incision - clean, dry, stapled
Dressing - removed
Care Review
Data Reviewed
Discussed with: Family (Jarrod, via phone)
--- NOTE | 2024-05-16 11:59 | CM ---
met with patient at bedside.he is sp partial prostatectomy.stable for dc [facility].TT sent to attending to let him know home care has been set up.
[2024-05-16] MEDS: TYLENOL 650 MG PO (13:31)
[2024-05-16 14:38] VITALS: BP 107/73
== END 2024-05-16 14:49 | disposition home or self-care (01) ==
LOC: SDS 06:26
PROVIDERS: Nurse Practitioner Gerontology; ATTENDING PHYSICIAN Specialist
DX: N40.1 Benign prostatic hyperplasia with lower urinary tract symptoms (principal); R33.8 Other retention of urine; N39.0 Urinary tract infection, site not specified; B96.5 Pseudomonas (aeruginosa) (mallei) (pseudomallei) as the cause of diseases classified elsewhere
CPT/HCPCS: 55867; 88307; 80048; 85014; 85018; 85027; 90677; G0009; J1580

== ENCOUNTER → 2024-05-21 16:44 | Outpatient (REF) | payer MEDICARE, OTHER, SELFPAY ==
[2024-05-21 20:10] LABS: Urine Albumin 3+ (Neg - Trace); Urine Bilirubin Negative (Negative); Urine Character Bloody (Clear); Urine Color Red; Urine Glucose Negative (Negative); Urine Ketone Trace (Negative); Urine Leukocyte Negative (Negative); Urine Nitrite Negative (Negative); Urine Occult Blood 4+ (Negative); Urine Urobilinogen Negative (Neg - 1+)
[2024-05-21 20:23] LABS: Urine Red Blood Cell >100 /HPF (0-2)
== END ==
LOC: CLAB 16:44
PROVIDERS: ATTENDING PHYSICIAN Specialist; FAMILY PHYSICIAN Family Medicine
DX: N40.1 Benign prostatic hyperplasia with lower urinary tract symptoms (principal); N39.0 Urinary tract infection, site not specified
CPT/HCPCS: 81003; 81015

== ENCOUNTER → 2025-06-18 08:14 | Outpatient (REF) | payer MEDICARE, OTHER, SELFPAY ==
[2025-06-18 10:41] LABS: HDL Cholesterol 61 mg/dl; LDL Cholesterol, Calculated 87 mg/dl; Very Low Density Lipoprotein 19 mg/dl (0-30)
== END ==
LOC: REG 08:14
PROVIDERS: ATTENDING PHYSICIAN Family Medicine
DX: E78.2 Mixed hyperlipidemia (principal)
CPT/HCPCS: 36415; 80061